=== PATIENT | female | born 1960 | race African-American/Black ===

== ENCOUNTER 2016-08-02 22:41 | Emergency (ER) | payer MEDICAID, OTHER ==
[~2016-08-02 22:41] MED LIST: AMLO5TAB2 PO; FLUO40CA PO; FURO40TA PO; GABA300C5 PO; LANTUS2P SQ; LISI10TA3 PO; MELO-1 PO; METO25TA6 PO; NORC5TAB PO; PROT40TA PO; ULTR50TA5 PO; VITA100064 PO; ZOFR4TAB3 SL
[2016-08-02 22:43] VITALS: BP 191/93; PULSE 80; RESP 16; TEMP 98.3; O2SAT 98
[2016-08-02 23:33] LABS: AUTOMATED NEUTROPHIL # 2.6 TH/MM3 (1.8-7.7); BASOPHIL # 0.1 TH/MM3 (0-0.2); BASOPHIL % 1.3 % (0.0-2.0); EOSINOPHIL # 0.3 TH/MM3 (0-0.4); EOSINOPHIL % 5.1 % (0.0-4.0); HEMATOCRIT 37.4 % (35.0-46.0); HEMO FLAGS DIFF FINAL; LYMPH % 42.1 % (9.0-44.0); LYMPHOCYTE # 2.4 TH/MM3 (1.0-4.8); MEAN CELL VOLUME 86.7 FL (80.0-100.0); MEAN CORPUSCULAR HEMOGLOBIN 28.6 PG (27.0-34.0); MONO % 7.1 % (0.0-8.0); NEUT % 44.4 % (16.0-70.0); PLATELET COUNT 253 TH/MM3 (150-450); RED BLOOD COUNT 4.32 MIL/MM3 (4.00-5.30); RED CELL DISTRIBUTION WIDTH 13.5 % (11.6-17.2); WHITE BLOOD COUNT 5.7 TH/MM3 (4.0-11.0)
[2016-08-02 23:40] LABS: PROTHROMBIN TIME - PATIENT 10.6 SEC (9.8-11.6)
[2016-08-02 23:56] LABS: ALKALINE PHOSPHATASE 100 U/L (45-117); TOTAL BILIRUBIN ADULT 0.3 MG/DL (0.2-1.0)
[2016-08-03 00:06] LABS: ALT (GPT) 41 U/L (10-53); ANION GAP 6 MEQ/L (5-15); AST (GOT) 30 U/L (15-37); BICARBONATE 32.2 MEQ/L (21.0-32.0); BLOOD UREA NITROGEN 17 MG/DL (7-18); CHLORIDE 104 MEQ/L (98-107); GLOMERULAR FILTRATION RATE 64 ML/MIN (>89); SODIUM (NA) 142 MEQ/L (136-145)
[2016-08-03 00:14] LABS: POTASSIUM 4.2 MEQ/L (3.5-5.1)
[2016-08-03 02:48] VITALS: BP 144/79; PULSE 97; RESP 18; O2SAT 94
--- NOTE | 2016-08-03 03:33 | PD ---
HPI Chief Complaint: Edema Time Seen by Provider: 02:34 Travel History International Travel<30 days: No Contact w/Intl Traveler<30days: No Traveled to known affect area: No History of Present Illness HPI 56-year-old female presents with bilateral lower extremity edema and concern that she has gained weight. She states she used to be on dialysis and is not on that anymore. She denies any chest pain, shortness of breath, fever or other concurrent complaints. She states that she is worried about her kidneys. Quality is swollen. Severity is moderate. Location is bilateral lower legs. She denies specific modifying factors. Duration is couple weeks. PFSH Past Medical History Heart Rhythm Problems: No Cardiac Catheterization: Yes (3) Cardiovascular Problems: Yes (CHF) High Cholesterol: No Congestive Heart Failure: Yes Cerebrovascular Accident: Yes (TIA) Diabetes: Yes (INSULIN DEPENDENT) Patient Takes Glucophage: No Diminished Hearing: No Gastrointestinal Disorders: Yes (COLONOSCOPY 3 POLYPS REMOVED) Hypertension: Yes Immunizations Current: No Pancreatitis: Yes Tetanus Vaccination: < 5 Years Influenza Vaccination: Yes ?: Not Menopausal: Yes : 3 Para: 2 : 1 Past Surgical History Cholecystectomy: Yes Coronary Artery Bypass Graft: No Eye Surgery: Yes (R EYE RETINA DETACHMENT in 2007) Hysterectomy: Yes Family History Family Myocardial Infarction: Yes Social History Alcohol Use: No Tobacco Use: No Substance Use: No Allergies-Medications (Allergen,Severity, Reaction): Coded Allergies: No Known Allergies (Verified , 08/03/16) Reported Meds & Prescriptions Reported Meds & Active Scripts Active Reported Vitamin D (Cholecalciferol) 1,000 Unit Tab 1,000 Units PO DAILY Furosemide 40 Mg Tab 40 Mg PO DAILY Lisinopril 10 Mg Tab 10 Mg PO DAILY Metoprolol Succinate ER 24 HR (Metoprolol Succinate) 25 Mg Tab 25 Mg PO DAILY Fluoxetine (Fluoxetine HCl) 40 Mg Cap 40 Cap PO DAILY Amlodipine (Amlodipine Besylate) 5 Mg Tab 5 Mg PO DAILY Protonix (Pantoprazole Sodium) 40 Mg Tab 40 Mg PO DAILY Gabapentin 300 Mg Cap 300 Mg PO HS Meloxicam 15 Mg Tab 15 Mg PO DAILY Lantus Inj (Insulin Glargine) 1,000 Unit/10 Ml Vial 55 Units SQ HS Lantus Inj (Insulin Glargine) 1,000 Unit/10 Ml Vial 75 Units SQ AC BREAKFAST Review of Systems Except as stated in HPI: all other systems reviewed are Neg Physical Exam Narrative GENERAL: Well-nourished, well-developed patient. Well-appearing SKIN: Warm and dry. HEAD: Normocephalic and atraumatic. EYES: No injection or drainage. ENT: No nasal drainage noted. NECK: Supple, trachea midline. CARDIOVASCULAR: Regular rate and rhythm RESPIRATORY: Breath sounds equal bilaterally. No accessory muscle use. GASTROINTESTINAL: Abdomen soft, non-tender, nondistended. EXTREMITIES: Nonpitting edema bilateral lower extremities, no joint pains, compartments soft. NEUROLOGICAL: Awake and alert. Motor and sensory grossly within normal limits. Normal speech. Data Data Last Documented VS Vital Signs Date Time Temp Pulse Resp B/P Pulse Ox O2 Delivery O2 Flow Rate FiO2 08/03/16 02:48 97 18 144/79 94 Room Air 08/02/16 22:43 98.3 Orders B-Type Natriuretic Peptide (08/02/16 22:57) Comprehensive Metabolic Panel (08/02/16 22:57) Complete Blood Count With Diff (08/02/16 22:57) Coag Profile (08/02/16 22:57) Labs Laboratory Tests Test 08/02/16 23:15 White Blood Count 5.7 TH/MM3 Red Blood Count 4.32 MIL/MM3 Hemoglobin 12.3 GM/DL Hematocrit 37.4 % Mean Corpuscular Volume 86.7 FL Mean Corpuscular Hemoglobin 28.6 PG Mean Corpuscular Hemoglobin 33.0 % Concent Red Cell Distribution Width 13.5 % Platelet Count 253 TH/MM3 Mean Platelet Volume 8.7 FL Neutrophils (%) (Auto) 44.4 % Lymphocytes (%) (Auto) 42.1 % Monocytes (%) (Auto) 7.1 % Eosinophils (%) (Auto) 5.1 % Basophils (%) (Auto) 1.3 % Neutrophils # (Auto) 2.6 TH/MM3 Lymphocytes # (Auto) 2.4 TH/MM3 Monocytes # (Auto) 0.4 TH/MM3 Eosinophils # (Auto) 0.3 TH/MM3 Basophils # (Auto) 0.1 TH/MM3 CBC Comment DIFF FINAL Differential Comment Prothrombin Time 10.6 SEC Prothromb Time International 1.0 RATIO Ratio Activated Partial 25.0 SEC Thromboplast Time Sodium Level 142 MEQ/L Potassium Level 4.2 MEQ/L Chloride Level 104 MEQ/L Carbon Dioxide Level 32.2 MEQ/L Anion Gap 6 MEQ/L Blood Urea Nitrogen 17 MG/DL Creatinine 1.07 MG/DL Estimat Glomerular Filtration 64 ML/MIN Rate Random Glucose 218 MG/DL Calcium Level 8.9 MG/DL Total Bilirubin 0.3 MG/DL Aspartate Amino Transf 30 U/L (AST/SGOT) Alanine Aminotransferase 41 U/L (ALT/SGPT) Alkaline Phosphatase 100 U/L B-Type Natriuretic Peptide 7 PG/ML Total Protein 7.8 GM/DL Albumin 3.5 GM/DL MDM Medical Decision Making Medical Screen Exam Complete: Yes Emergency Medical Condition: Yes Medical Record Reviewed: Yes (past history confirmed) Interpretation(s) CBC & BMP Diagram 08/02/16 23:15 Differential Diagnosis Acute renal failure, anemia, heart failure Narrative Course Blood work from triage is normal including BNP other than moderately elevated glucose in the 200s with normal bicarbonate and minimally elevated creatinine which has improved from prior. Lengthy discussion with patient and she agrees to further testing as an outpatient. Given return instructions. Diagnosis Primary Impression: Bilateral lower extremity edema Patient Instructions: General Instructions Additional Instructions: Elevate legs at rest, return as needed, follow with primary Thursday Med/Other Pt SpecificInfo: No Change to Meds Disposition: 01 DISCHARGE HOME Condition: Stable Kerry Mccormack MD Aug 03, 2016 03:33
--- NOTE | 2016-08-03 14:39 | EKG ---
Date Performed: 08/03/2016 Time Performed: 02:24:08 PTAGE: 56 years EKG: Sinus rhythm WITH OCCASIONAL SUPRAVENTRICULAR PREMATURE COMPLEXES LOW QRS VOLTAGE IN PRECORDIAL LEADS POSSIBLE AN TERIOR MYOCARDIAL INFARCTION BORDERLINE ECG Compared to prior tracing no significant change PREVIOUS TRACING : 04/18/2016 01.17 DOCTOR: Grady Rios Interpretating Date/Time 08/03/2016 14:37:42
== END 2016-08-03 04:06 | disposition home or self-care (01) ==
LOC: NEPE 22:41
DX: R60.0 Localized edema (principal); I10 Essential (primary) hypertension; E11.9 Type 2 diabetes mellitus without complications; Z86.73 Personal history of transient ischemic attack (TIA), and cerebral infarction without residual deficits; I50.9 Heart failure, unspecified; Z79.4 Long term (current) use of insulin
CPT/HCPCS: 80053; 83880; 85025; 85610; 85730; 93005; 99284

== ENCOUNTER 2017-01-24 01:09 | Observation (INO) | payer OTHER, MEDICAID ==
[~2017-01-24] VITALS: Ht 170.2 cm; Wt 120.0 kg
[2017-01-24] VITALS (12 sets, daily range): BP systolic 105–159; BP diastolic 57–87; PULSE 73–82; RESP 16–24; TEMP 96.8–98.8; O2SAT 94–100
[~2017-01-24 01:09] MED LIST changes: -NORC5TAB PO; -ULTR50TA5 PO; -ZOFR4TAB3 SL
[2017-01-24] MEDS ORDERED: FUROSEMIDE 40 MG/4 ML VIAL IVP ONE (01:45)
[2017-01-24] MEDS ORDERED: SODIUM CHLORIDE 0.9% FLUSH 10 ML FLUSH IVF PRN (01:45)
[2017-01-24] MEDS ORDERED: NITROGLYCERIN 2% OINT 1 GM PACKET TOPICAL ONE (01:45)
[2017-01-24] MEDS ORDERED: ASPIRIN 325 MG TAB PO ONE (01:45)
--- NOTE | 2017-01-24 01:54 | RADRPT ---
EXAM DATE/TIME: 01/24/2017 01:50 [facility] COMPARISON: CHEST SINGLE AP, April 08, 2016, 23:15. INDICATIONS : Chest pain. MEDICAL HISTORY : Hypertension. Diabetes mellitus type II. SURGICAL HISTORY : None. ENCOUNTER: Initial ACUITY: 1 day PAIN SCORE: 7/10 LOCATION: Bilateral chest FINDINGS: A single view of the chest demonstrates the lungs to be symmetrically aerated without evidence of mas s, infiltrate or effusion. The cardiomediastinal contours are unremarkable. Osseous structures are intact. CONCLUSION: Normal examination. Harvey Joyce MD on January 24, 2017 at 1:52 Board Certified Radiologist. This report was verified electronically.
[2017-01-24 02:01] LABS: AUTOMATED NEUTROPHIL # 2.1 TH/MM3 (1.8-7.7); BASOPHIL % 0.6 % (0.0-2.0); EOSINOPHIL # 0.3 TH/MM3 (0-0.4); EOSINOPHIL % 6.3 % (0.0-4.0); HEMATOCRIT 38.2 % (35.0-46.0); HEMO FLAGS DIFF FINAL; LYMPH % 41.3 % (9.0-44.0); LYMPHOCYTE # 2.2 TH/MM3 (1.0-4.8); MEAN CELL VOLUME 88.5 FL (80.0-100.0); MEAN CORPUSCULAR HEMOGLOBIN 28.9 PG (27.0-34.0); MEAN CORPUSCULAR HGB CONC 32.6 % (32.0-36.0); MONO % 12.6 % (0.0-8.0); NEUT % 39.2 % (16.0-70.0); PLATELET COUNT 276 TH/MM3 (150-450); RED BLOOD COUNT 4.32 MIL/MM3 (4.00-5.30); RED CELL DISTRIBUTION WIDTH 13.7 % (11.6-17.2); WHITE BLOOD COUNT 5.3 TH/MM3 (4.0-11.0)
[2017-01-24 02:12] LABS: INTERNATIONAL NORMALIZED RATIO 0.9 RATIO; PROTHROMBIN TIME - PATIENT 10.3 SEC (9.8-11.6)
[2017-01-24 02:24] LABS: ALT (GPT) 61 U/L (10-53); ANION GAP 7 MEQ/L (5-15); AST (GOT) 52 U/L (15-37); BICARBONATE 28.5 MEQ/L (21.0-32.0); BLOOD UREA NITROGEN 23 MG/DL (7-18); CHLORIDE 103 MEQ/L (98-107); GLOMERULAR FILTRATION RATE 48 ML/MIN (>89); POTASSIUM 4.1 MEQ/L (3.5-5.1); SODIUM (NA) 138 MEQ/L (136-145)
[2017-01-24 02:30] LABS: ALKALINE PHOSPHATASE 107 U/L (45-117); CREATINE KINASE 171 U/L (26-192); TOTAL BILIRUBIN ADULT 0.3 MG/DL (0.2-1.0)
[2017-01-24 02:42] LABS: CKMB 3.2 NG/ML (0.5-3.6)
--- NOTE | 2017-01-24 02:42 | PD ---
HPI Chief Complaint: Chest Pain Time Seen by Provider: 01:33 Travel History International Travel<30 days: No Contact w/Intl Traveler<30days: No Traveled to known affect area: No History of Present Illness HPI 56-year-old female patient with history of multiple medical issues, CHF, presents to the ER today with one-day history of substernal chest pains which she currently measures at a 5 out of 10 and shortness of breath. She states her chest feels heavy. She denies any fevers, coughing, or other symptoms. She is on Lasix and last took it this morning. Symptoms worsen with laying down. Modifying Factors: None Associated Signs & Symptoms: Chest pressure and shortness of breath Risk Factors: CHF history PFSH Past Medical History Hx Anticoagulant Therapy: No Heart Rhythm Problems: No Cardiac Catheterization: Yes (3) Cardiovascular Problems: Yes ([place], HTN, CAD, CHF) High Cholesterol: No Congestive Heart Failure: Yes Cerebrovascular Accident: Yes (TIA) Diabetes: Yes Patient Takes Glucophage: No Diminished Hearing: No Gastrointestinal Disorders: Yes (COLONOSCOPY 3 POLYPS REMOVED) Hypertension: Yes Immunizations Current: No Pancreatitis: Yes Menopausal: Yes : 3 Para: 2 : 1 Past Surgical History Cholecystectomy: Yes Coronary Artery Bypass Graft: No Eye Surgery: Yes (R EYE RETINA DETACHMENT in 2007) Hysterectomy: Yes Family History Family Myocardial Infarction: Yes Social History Alcohol Use: No Tobacco Use: No Substance Use: No Allergies-Medications (Allergen,Severity, Reaction): Coded Allergies: No Known Allergies (Verified , 01/24/17) Reported Meds & Prescriptions Reported Meds & Active Scripts Active Reported Vitamin D3 (Cholecalciferol) 1,000 Unit Tab 1,000 Units PO DAILY Furosemide 40 Mg Tab 40 Mg PO DAILY Lisinopril 10 Mg Tab 10 Mg PO DAILY Metoprolol Succinate ER 24 HR (Metoprolol Succinate) 25 Mg Tab 25 Mg PO DAILY Fluoxetine (Fluoxetine HCl) 40 Mg Cap 40 Cap PO DAILY Amlodipine (Amlodipine Besylate) 5 Mg Tab 5 Mg PO DAILY Protonix (Pantoprazole Sodium) 40 Mg Tab 40 Mg PO DAILY Gabapentin 300 Mg Cap 300 Mg PO HS Meloxicam 15 Mg Tab 15 Mg PO DAILY Lantus Inj (Insulin Glargine) 1,000 Unit/10 Ml Vial 55 Units SQ HS Lantus Inj (Insulin Glargine) 1,000 Unit/10 Ml Vial 75 Units SQ AC BREAKFAST Review of Systems Except as stated in HPI: all other systems reviewed are Neg Physical Exam Narrative GENERAL: Well-developed middle age -[place] female patient in mild distress. Awake and oriented 3. SKIN: Focused skin assessment warm/dry. HEAD: Atraumatic. Normocephalic. EYES: Pupils equal and round. No scleral icterus. No injection or drainage. ENT: No nasal bleeding or discharge. Mucous membranes pink and moist. NECK: Trachea midline. No JVD. CARDIOVASCULAR: Regular rate and rhythm. No murmur appreciated. Pulses are present and equal bilaterally. RESPIRATORY: No accessory muscle use. Clear to auscultation. Breath sounds equal bilaterally. GASTROINTESTINAL: Abdomen soft, non-tender, nondistended. Hepatic and splenic margins not palpable. MUSCULOSKELETAL: No obvious deformities. No clubbing. No cyanosis. No edema. NEUROLOGICAL: Awake and alert. No obvious cranial nerve deficits. Motor grossly within normal limits. Normal speech. PSYCHIATRIC: Appropriate mood and affect; insight and judgment normal. Data Data Last Documented VS Vital Signs Date Time Temp Pulse Resp B/P (MAP) Pulse Ox O2 Delivery O2 Flow Rate FiO2 01/24/17 02:50 80 20 152/80 (104) 99 Room Air 01/24/17 01:23 98.8 Orders Orders Complete Blood Count With Diff (01/24/17 01:33) Comprehensive Metabolic Panel (01/24/17 01:33) B-Type Natriuretic Peptide (01/24/17 01:33) Act Partial Throm Time (Ptt) (01/24/17 01:33) Prothrombin Time / Inr (Pt) (01/24/17 01:33) Ckmb (Isoenzyme) Profile (01/24/17 01:33) Troponin I (01/24/17 01:33) Iv Access Insert/Monitor (01/24/17:33) Ecg Monitoring (01/24/17:33) Oximetry (01/24/17:33) Oxygen Administration (01/24/17 01:33) Chest, Single Ap (01/24/17 01:33) Sodium Chloride 0.9% Flush (Ns Flush) (01/24/17 01:45) Furosemide Inj (Lasix Inj) (01/24/17 01:45) Aspirin (Aspirin) (01/24/17 01:45) Nitroglycerin 2% Oint (Nitroglycerin 2% (01/24/17 01:45) CKMB (01/24/17 01:40) CKMB% (01/24/17 01:40) Admit Order (Ed Use Only) (01/24/17 03:17) Activity Bed Rest With Brp (01/24/17 03:17) Vital Signs (Adult) Q4H (01/24/17 03:17) Cardiac Rhythm .As Directed (01/24/17 03:17) Notify Dr: Other .PRN (01/24/17 03:17) Notify DrAnna Parameters (01/24/17 03:17) Resp Oxygen Nasal Cannula (01/24/17 ) Diet Heart Healthy (01/24/17 Breakfast) Ckmb (Isoenzyme) Profile (01/24/17 03:17) Ckmb (Isoenzyme) Profile (01/24/17 06:17) Troponin I (01/24/17 03:17) Troponin I (01/24/17 06:17) Electrocardiogram (01/24/17 03:17) Electrocardiogram (01/24/17 06:17) ^ Obtain (01/24/17 03:17) Sodium Chloride 0.9% Flush (Ns Flush) (01/24/17 03:30) Sodium Chloride 0.9% Flush (Ns Flush) (01/24/17 09:00) Building Mover / Telemetry CAMRYN.Q8H (01/24/17 03:17) CKMB (01/24/17 04:43) CKMB% (01/24/17 04:43) Labs Laboratory Tests Test 01/24/17 01:40 White Blood Count 5.3 TH/MM3 Red Blood Count 4.32 MIL/MM3 Hemoglobin 12.5 GM/DL Hematocrit 38.2 % Mean Corpuscular Volume 88.5 FL Mean Corpuscular Hemoglobin 28.9 PG Mean Corpuscular Hemoglobin Concent 32.6 % Red Cell Distribution Width 13.7 % Platelet Count 276 TH/MM3 Mean Platelet Volume 8.1 FL Neutrophils (%) (Auto) 39.2 % Lymphocytes (%) (Auto) 41.3 % Monocytes (%) (Auto) 12.6 % Eosinophils (%) (Auto) 6.3 % Basophils (%) (Auto) 0.6 % Neutrophils # (Auto) 2.1 TH/MM3 Lymphocytes # (Auto) 2.2 TH/MM3 Monocytes # (Auto) 0.7 TH/MM3 Eosinophils # (Auto) 0.3 TH/MM3 Basophils # (Auto) 0.0 TH/MM3 CBC Comment DIFF FINAL Differential Comment Prothrombin Time 10.3 SEC Prothromb Time International Ratio 0.9 RATIO Activated Partial Thromboplast Time 24.0 SEC Blood Urea Nitrogen 23 MG/DL Creatinine 1.36 MG/DL Random Glucose 185 MG/DL Total Protein 7.7 GM/DL Albumin 3.3 GM/DL Calcium Level 8.6 MG/DL Alkaline Phosphatase 107 U/L Aspartate Amino Transf (AST/SGOT) 52 U/L Alanine Aminotransferase (ALT/SGPT) 61 U/L Total Bilirubin 0.3 MG/DL Sodium Level 138 MEQ/L Potassium Level 4.1 MEQ/L Chloride Level 103 MEQ/L Carbon Dioxide Level 28.5 MEQ/L Anion Gap 7 MEQ/L Estimat Glomerular Filtration Rate 48 ML/MIN Total Creatine Kinase 171 U/L Creatine Kinase MB 3.2 NG/ML Troponin I LESS THAN 0.02 NG/ML B-Type Natriuretic Peptide 10 PG/ML MDM Medical Decision Making Medical Screen Exam Complete: Yes Emergency Medical Condition: Yes Medical Record Reviewed: Yes Interpretation(s) EKG shows NSR, no ST elevation or depression, and no arrhythmias. No significant T-wave inversions. Laboratory Tests Test 01/24/17 01:40 Monocytes (%) (Auto) 12.6 % (0.0-8.0) Eosinophils (%) (Auto) 6.3 % (0.0-4.0) Activated Partial Thromboplast Time 24.0 SEC (24.3-30.1) Blood Urea Nitrogen 23 MG/DL (7-18) Creatinine 1.36 MG/DL (0.50-1.00) Random Glucose 185 MG/DL (74-106) Albumin 3.3 GM/DL (3.4-5.0) Aspartate Amino Transf (AST/SGOT) 52 U/L (15-37) Alanine Aminotransferase (ALT/SGPT) 61 U/L (10-53) Estimat Glomerular Filtration Rate 48 ML/MIN (>89) Troponin I LESS THAN 0.02 NG/ML Last 24 hours Impressions Chest X-Ray 01/24/17 3293 Signed Impressions: Service Date/Time: Tuesday, January 24, 2017 01:50 - CONCLUSION: Normal examination. Harvey Joyce MD Differential Diagnosis CHF versus pneumonia versus dysrhythmias versus ACS Narrative Course Chest x-ray did not indicate any underlying pneumonia. Cardiac enzymes are negative. Patient was given aspirin and nitroglycerin with some relief of chest discomfort. Vital signs are stable in the ER. CTA was negative for PE. At this point, my plan would be to admit her for further evaluation of chest pain. Diagnosis Primary Impression: Chest pain Admitting Information Admitting Physician Requests: Admit Christine Cho MD Jan 24, 2017 02:42
[2017-01-24] MEDS ORDERED: IOHEXOL 350 MG/ML 10 ML VIAL (for RAD DIAG) IVCONTRAST ONE (03:21)
[2017-01-24] MEDS ORDERED: SODIUM CHLORIDE 0.9% FLUSH 10 ML FLUSH IV FLUSH PRN (03:30)
--- NOTE | 2017-01-24 04:43 | RADRPT ---
EXAM DATE/TIME: 01/24/2017 04:16 [facility] COMPARISON: No previous studies available for comparison. INDICATIONS : Chest pain with shortness of breath. IV CONTRAST: 70 cc Omnipaque 350 (iohexol) IV RADIATION DOSE: 23.23 CTDIvol (mGy) MEDICAL HISTORY : Cardiovascular disease. Hypertension. Diabetes mellitus type 2. SURGICAL HISTORY : None. ENCOUNTER: Initial ACUITY: 1 day PAIN SCALE: 8/10 LOCATION: Bilateral chest TECHNIQUE: Volumetric scanning of the chest was performed using a pulmonary embolism protocol MIP images were re constructed. Using automated exposure control and adjustment of the mA and/or kV according to patien t size, radiation dose was kept as low as reasonably achievable to obtain optimal diagnostic quality images. DICOM format image data is available electronically for review and comparison. Follow-up recommendations for detected pulmonary nodules are based at a minimum on nodule size and pa tient risk factors according to Fleischner Society Guidelines. FINDINGS: PULMONARY ARTERIES: No filling defects are seen in the pulmonary arteries through the segmental level. LUNGS: There is no consolidation or pneumothorax . No concerning pulmonary nodule is visualized. PLEURAE: There is no pleural thickening or pleural effusion. MEDIASTINUM: There is good visualization of the great vessels of the middle mediastinum. No evidence of mediastin al or hilar adenopathy/mass. MUSCULOSKELETAL: Within normal limits for patient age. MISCELLANEOUS: The visualized upper abdominal organs demonstrate no acute abnormality. CONCLUSION: Normal examination. Harvey Joyce MD on January 24, 2017 at 4:41 Board Certified Radiologist. This report was verified electronically.
[2017-01-24 05:52] LABS: CREATINE KINASE 156 U/L (26-192)
[2017-01-24] MEDS ORDERED: ONDANSETRON HCL 4 MG/2 ML VIAL IV PRN (08:15)
[2017-01-24] MEDS ORDERED: ACETAMINOPHEN 500 MG CPLT PO PRN (08:15)
[2017-01-24] MEDS ORDERED: NITROGLYCERIN 0.4 MG SL 25 TABS/BTL SL PRN (08:15)
--- NOTE | 2017-01-24 08:42 | HHI.HP ---
HPI Primary Care Physician Chikis Gaines M.D. Chief Complaint Chest pain History of Present Illness 56-year-old female with history of CHF, hypertension, diabetes type 2, and renal insufficiency presents to emergency room for further evaluation. Onset last evening. Location substernal. Characterized as tightness. Nonexertional. Associated symptoms included nausea and shortness of breath. Duration one hour. Also reports feeling fatigued for weeks. Denies similar pain in the past. No known precipitating or relieving factors. Review of Systems General: Fatigue for many weeks. Weakness in legs, occurs suddenly, reports falling last week due to this. No fever, chills, or recent illness. Currently taking antibiotics for recent tooth extraction. HEENT: No KOEHLER, no vision changes, no nasal congestion or drainage. CV: As stated above. No current CP or pressure. No palpitations or dizziness RESP: Becomes SOB on exertional for "many months." No SOB at rest, cough, wheeze , recent URI, or history of asthma GI: No nausea, vomiting, bowel changes, diarrhea, constipation, pain, distention , melena, or blood in the stool. Weight fluctuates, reports taking daily weights as instructed by PCP. No sudden increase in weight. : No dysuria. History of stage III kidney failure. 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 No incontinence. EXT: Occasional anasarca, last episode last week, Lasix generally resolves her edema. Rare feelings of bilateral lower extremity neuropathy. MS: No discomfort or change in ROM NEURO: No difficulty with balance, reports "my legs give out without notice." No syncope episodes or LOC. Last episode occurred last week. Reports falling more often lately and has reported this to her PCP. PSYCH: No anxiety, depression, or suicidal ideation Past Family Social History Allergies: Coded Allergies: No Known Allergies (Verified , 01/24/17) Past Medical History CHF, hypertension, TIA, diabetes type 2, GERD, renal insufficiency Past Surgical History Cholecystectomy, right retinal detachment surgery Reported Medications Active Reported Vitamin D3 (Cholecalciferol) 1,000 Unit Tab 1,000 Units PO DAILY Furosemide 40 Mg Tab 40 Mg PO DAILY Lisinopril 10 Mg Tab 10 Mg PO DAILY Metoprolol Succinate ER 24 HR (Metoprolol Succinate) 25 Mg Tab 25 Mg PO DAILY Fluoxetine (Fluoxetine HCl) 40 Mg Cap 40 Cap PO DAILY Amlodipine (Amlodipine Besylate) 5 Mg Tab 5 Mg PO DAILY Protonix (Pantoprazole Sodium) 40 Mg Tab 40 Mg PO DAILY Gabapentin 300 Mg Cap 300 Mg PO HS Meloxicam 15 Mg Tab 15 Mg PO DAILY Lantus Inj (Insulin Glargine) 1,000 Unit/10 Ml Vial 55 Units SQ HS Lantus Inj (Insulin Glargine) 1,000 Unit/10 Ml Vial 75 Units SQ AC BREAKFAST Active Ordered Medications Current Medications Medications (Trade) Dose Ordered Sig/Crys Route Start Time Stop Time Status Last Admin (NS Flush) 2 ml UNSCH PRN IVF 01/24/17 01:45 (NS Flush) 2 ml UNSCH PRN IV FLUSH 01/24/17 03:30 (NS Flush) 2 ml BID IV FLUSH 01/24/17 09:00 (Tylenol) 500 mg Q4H PRN PO 01/24/17 08:15 (Zofran Inj) 4 mg Q6H PRN IV 01/24/17 08:15 (Nitrostat Sl) 0.4 mg Q5M PRN SL 01/24/17 08:15 (Aspirin) 325 mg DAILY PO 01/24/17 09:00 Family History Sister from [place] age 58. Social History Known diabetes type 2 and hypertension. No known hyperlipidemia, also not taken statin therapy with diabetes diagnosis. Lifelong nonsmoker. Denies any alcohol or illegal drug use. Past cardiac testing Reports stress test, EKG, and echocardiogram completed last week in [place], has appointment scheduled for 01/28/2017 for results. 10/28/2015 Lexiscan-unremarkable for ischemia. Cardiac catheterizations 3-reported all to be normal. Most recent 2010 cardiac catheterization. 12/30/2010- left heart catheterization (Dr. Mane)- conclusion left main, no angiographic disease. Left anterior descending is large and long vessel, wraps around the apex, with no angiographic obstructive disease. Large ramus intermedius branch, ostial 20% stenosis. Co-dominant circumflex and no angiographic disease. Co-dominant RCA, proximal 30% stenosis. Recommendations continue medical management. In review of unremarkable coronary angiogram, the stress test can be interpreted as a false positive or attenuation artifact. Physical Exam Vital Signs Vital Signs Date Time Temp Pulse Resp B/P (MAP) Pulse Ox O2 Delivery O2 Flow Rate FiO2 01/24/17 05:54 76 01/24/17 05:30 98.3 81 18 105/58 (74) 98 01/24/17 03:56 78 20 154/82 (106) 97 Room Air 01/24/17 03:29 94 01/24/17 02:50 80 20 152/80 (104) 99 Room Air 01/24/17 01:26 73 24 94 Room Air 01/24/17 01:23 98.8 76 16 148/72 (97) 100 01/24/17 01:11 98.7 82 24 159/87 (111) 98 Room Air Physical Exam GENERAL: Alert WN, WD, NAD, pleasant, obese female CV: RRR, without murmur, rub, gallop, no JVD, S1-S2 no S3-S4. RESP: Clear lungs throughout bilateral, no crackles, wheeze, rhonchi, symmetrical chest rise, nonlabored, able to speak in full sentences ABD: Soft, NT, ND, no masses, positive bowel tones EXT: Pulses +24, trace dependent edema MS: Normal tone 4 extremities, nontender, no obvious deformities, full range of motion NEURO: CN II through CN XII grossly intact, motor strength 5/5 PSYCH: A+O 3, pleasant affect, appropriate speech, appropriate mood and affect , insight and judgment SKIN: Normal turgor, normal texture Laboratory Laboratory Tests Test 01/24/17 01:40 01/24/17 04:43 01/24/17 07:45 White Blood Count 5.3 Red Blood Count 4.32 Hemoglobin 12.5 Hematocrit 38.2 Mean Corpuscular Volume 88.5 Mean Corpuscular Hemoglobin 28.9 Mean Corpuscular Hemoglobin Concent 32.6 Red Cell Distribution Width 13.7 Platelet Count 276 Mean Platelet Volume 8.1 Neutrophils (%) (Auto) 39.2 Lymphocytes (%) (Auto) 41.3 Monocytes (%) (Auto) 12.6 Eosinophils (%) (Auto) 6.3 Basophils (%) (Auto) 0.6 Neutrophils # (Auto) 2.1 Lymphocytes # (Auto) 2.2 Monocytes # (Auto) 0.7 Eosinophils # (Auto) 0.3 Basophils # (Auto) 0.0 CBC Comment DIFF FINAL Differential Comment Prothrombin Time 10.3 Prothromb Time International Ratio 0.9 Activated Partial Thromboplast Time 24.0 Blood Urea Nitrogen 23 Creatinine 1.36 Random Glucose 185 Total Protein 7.7 Albumin 3.3 Calcium Level 8.6 Alkaline Phosphatase 107 Aspartate Amino Transf (AST/SGOT) 52 Alanine Aminotransferase (ALT/SGPT) 61 Total Bilirubin 0.3 Sodium Level 138 Potassium Level 4.1 Chloride Level 103 Carbon Dioxide Level 28.5 Anion Gap 7 Estimat Glomerular Filtration Rate 48 Total Creatine Kinase 171 156 Creatine Kinase MB 3.2 3.0 Troponin I LESS THAN 0.02 LESS THAN 0.02 B-Type Natriuretic Peptide 10 Result Diagram: 01/24/1713901/24/[address] Angiography 01/24/17342 Signed Impressions: Service Date/Time: Tuesday, January 24, 2017 04:16 - CONCLUSION: Normal examination. Harvey Joyce MD Chest X-Ray 01/24/17 0133 Signed Impressions: Service Date/Time: Tuesday, January 24, 2017 01:50 - CONCLUSION: Normal examination. Harvey Joyce MD Course EKG Normal sinus rhythm, left axis deviation, nonspecific T-wave changes Caprini VTE Risk Assessment Caprini VTE Risk Assessment: No/Low Risk (score <= 1) Caprini Risk Assessment Model Point Value = 1 Point Value = 2 Point Value = 3 Point Value = 5 Age 41-60 Minor surgery BMI > 25 kg/m2 Swollen legs Varicose veins or History of unexplained or recurrent spontaneous Oral contraceptives or hormone replacement Sepsis (< 1 month) Serious lung disease, including pneumonia (< 1 month) Abnormal pulmonary function Acute myocardial infarction Congestive heart failure (< 1 month) History of inflammatory bowel disease Medical patient at bed rest Age 61-74 Arthroscopic surgery Major open surgery (> 45 min) Laparoscopic surgery (> 45 min) Malignancy Confined to bed (> 72 hours) Immobilizing plaster cast Central venous access Age >= 75 History of VTE Family history of VTE Factor V Leiden Prothrombin [id number] Lupus anticoagulant Anticardiolipin antibodies Elevated serum homocysteine Heparin-induced thrombocytopenia Other congenital or acquired thrombophilia Stroke (< 1 month) Elective arthroplasty Hip, pelvis, or leg fracture Acute spinal cord injury (< 1 month) Prophylaxis Regimen Total Risk Factor Score Risk Level Prophylaxis Regimen 0-1 Low Early ambulation 2 Moderate Order ONE of the following: *Sequential Compression Device (SCD) *Heparin 5000 units SQ BID 3-4 Higher Order ONE of the following medications: *Heparin 5000 units SQ TID *Enoxaparin/Lovenox 40 mg SQ daily (WT < 150 kg, CrCl > 30 mL/min) *Enoxaparin/Lovenox 30 mg SQ daily (WT < 150 kg, CrCl > 10-29 mL/min) *Enoxaparin/Lovenox 30 mg SQ BID (WT < 150 kg, CrCl > 30 mL/min) AND/OR *Sequential Compression Device (SCD) 5 or more Highest Order ONE of the following medications: *Heparin 5000 units SQ TID (Preferred with Epidurals) *Enoxaparin/Lovenox 40 mg SQ daily (WT < 150 kg, CrCl > 30 mL/min) *Enoxaparin/Lovenox 30 mg SQ daily (WT < 150 kg, CrCl > 10-29 mL/min) *Enoxaparin/Lovenox 30 mg SQ BID (WT < 150 kg, CrCl > 30 mL/min) AND *Sequential Compression Device (SCD) Assessment and Plan Assessment and Plan #1 Chest pain-admitted to chest pain center. Ruled out with 3 sets of EKGs, cardiac enzymes, monitor overnight. Seen and evaluated by Dr. Karel Daniels. Proceed with chemical stress test due to reported recent stress testing results not available for review. If stress test unremarkable, will discharge later this afternoon. Instructed to keep follow-up appointment with conveyor tender on . #2 Diabetes-SSI moderate dose, continue Lantus, encouraged increasing her daily activity as able, follow up with PCP #3 Hypertension-continue amlodipine and lisinopril, encouraged low sodium diet #4 CHF-continue metoprolol and furosemide, no signs of congestive heart failure at this time, keep follow up appointment with conveyor tender. #5 Renal insufficiency-appears to be at baseline, follow with nephrology as previously instructed #6 Generalized leg weakness-encouraged her to follow up with PCP, calling on Thursday to move her appointment to possible earlier appointment All other home medications will be reviewed and ordered as appropriate while in chest pain center. Ivy Clinton Jan 24, 2017 08:42
[2017-01-24] MEDS ORDERED: GLUCAGON 1 MG/ML VIAL OTHER PRN ×2 (09:00→11:15)
[2017-01-24] MEDS ORDERED: ASPIRIN 325 MG TAB PO SCH (09:00)
[2017-01-24] MEDS ORDERED: SODIUM CHLORIDE 0.9% FLUSH 10 ML FLUSH IV FLUSH SCH (09:00)
[2017-01-24] MEDS ORDERED: DEXTROSE 50% IN WATER 50 ML VIAL(D50) IV PRN ×2 (09:00→11:15)
[2017-01-24 09:07] LABS: CREATINE KINASE 144 U/L (26-192)
[2017-01-24 09:19] LABS: CKMB 2.6 NG/ML (0.5-3.6)
[2017-01-24] MEDS ORDERED: INSULIN ASPART SUPPLEMENTAL SCALE SQ SCH ×2 (11:00→16:00)
[2017-01-24] MEDS ORDERED: FUROSEMIDE 40 MG TAB PO SCH (12:00)
[2017-01-24] MEDS ORDERED: amLODIPine BESYLATE 5 MG TAB PO SCH (12:00)
[2017-01-24] MEDS ORDERED: FLUoxetine HCL 20 MG CAP PO SCH (12:00)
[2017-01-24] MEDS ORDERED: CHOLECALCIFEROL (VIT D3) 1000 UNIT TAB PO SCH (12:00)
[2017-01-24] MEDS ORDERED: METOPROLOL SUCCINATE 25 MG EXTENDED RELEASE TAB PO SCH (12:00)
[2017-01-24] MEDS ORDERED: LISINOPRIL 10 MG TAB PO SCH (12:00)
[2017-01-24] MEDS ORDERED: PANTOPRAZOLE SOD 40 MG DELAYED RELEASE TAB PO SCH (12:00)
[2017-01-24] MEDS ORDERED: REGADENOSON INJ 0.4 MG/5 ML SYR ONE (13:10)
--- NOTE | 2017-01-24 14:29 | RADRPT ---
EXAM DATE/TIME: 01/24/2017 12:28 [facility] COMPARISON: MYOCARDIAL PERF PHARM SPECT, GATED W/EF, October 28, 2015, 10:52. INDICATIONS : Substernal chest pain. Angina. Coronary artery disease. DOSE: 35.0 mCi Tc99m Myoview at stress. 11.0 mCi Tc99m Myoview at rest. 0.4 mg Lexiscan STRESS SYMPTOMS: Heart racing and warm. EJECTION FRACTION: 59% MEDICAL HISTORY : Myocardial infarction. Congestive heart failure. Diabetes mellitus type 2. SURGICAL HISTORY : Cardiac cath. ENCOUNTER: Initial ACUITY: 1 day PAIN SCALE: 5/10 LOCATION: Substernal chest TECHNIQUE: The patient underwent pharmacologic stress with infusion of prescribed dose. Continuous ECG tracing was monitored during stress. Gated SPECT imaging was performed after stress and conventional SPECT i maging was performed at rest. The examination was performed on a SPECT/CT scanner, both attenuation and non-corrected datasets were reviewed. FINDINGS: DISTRIBUTION: The maximum perfused segment at stress is in the anterior wall. PERFUSION STUDY: The pattern of perfusion at stress is within normal limits. GATED STUDY: There is intact wall motion and thickening without hypokinetic or dyskinetic segments. CONCLUSION: No definitive reversible perfusion defects are seen to suggest stress-induced myocardial ischemia. RISK CATEGORY: Low (less than 1% annual mortality rate) Tara Jensen MD on January 24, 2017 at 14:22 Board Certified Radiologist. This report was verified electronically.
--- NOTE | 2017-01-24 15:50 | HHI.DCPOC ---
Discharge Care Plan Diagnosis: (1) Weakness of both lower extremities (2) Atypical chest pain (3) Fatigue (4) Hypertension (5) Renal insufficiency (6) DM (diabetes mellitus) Goals to Promote Your Health * To prevent worsening of your condition and complications * To maintain your health at the optimal level Directions to Meet Your Goals Take your medications as prescribed Follow your dietary instruction Follow activity as directed Keep your appointments as scheduled Take your immunizations and boosters as scheduled If your symptoms worsen call your PCP, if no PCP go to Urgent Care Center or Emergency Room Smoking is Dangerous to Your Health. Avoid second hand smoke Call the 24-hour hour crisis hotline for domestic abuse at Ivy Clinton Jan 24, 2017 15:50
[2017-01-25] MEDS ORDERED: INSULIN GLARGINE 1,000 UNITS/10 ML VIAL SQ SCH (07:00)
--- NOTE | 2017-01-26 11:08 | EKG ---
Date Performed: 01/24/2017 Time Performed: 08:03:19 PTAGE: 56 years EKG: Sinus rhythm BORDERLINE LEFT AXIS DEVIATION LOW QRS VOLTAGE IN PRECORDIAL LEADS NONSPECIFIC T-WAVE ABNORMALITY AB NORMAL ECG PREVIOUS TRACING : 01/24/2017 05.37 Since previous tracing, no significant change noted DOCTOR: Karel Daniels Interpretating Date/Time 01/26/2017 11:07:17
--- NOTE | 2017-01-26 11:09 | EKG ---
Date Performed: 01/24/2017 Time Performed: 05:37:36 PTAGE: 56 years EKG: Sinus rhythm BORDERLINE LEFT AXIS DEVIATION NONSPECIFIC T-WAVE ABNORMALITY BORDERLINE ECG PREVIOUS TRACING : 08/03/2016 02.24 Since previous tracing, no significant change noted DOCTOR: Karel Daniels Interpretating Date/Time 01/26/2017 11:08:03
--- NOTE | 2017-01-26 11:10 | EKG ---
Date Performed: 01/24/2017 Time Performed: 01:21:46 PTAGE: 56 years EKG: Sinus rhythm BORDERLINE LEFT AXIS DEVIATION NONSPECIFIC T-WAVE ABNORMALITY BORDERLINE ECG PREVIOUS TRACING : 08/03/2016 02.24 Since previous tracing, no significant change noted DOCTOR: Karel Daniels Interpretating Date/Time 01/27/2017 06:49:15
--- NOTE | 2017-01-26 12:11 | TR ---
Date Performed: 01/24/2017 Time Performed: 13:17:57 DOCTOR: Karel Daniels DRUG LIST: CLINICAL HISTORY: REASON FOR TEST: REASON FOR ENDING: OBSERVATION: CONCLUSION: Lexiscan stress test was performed under standard four minute protocol. Radionuclid e was injected one minute prior to ending the test. No electrocardiographic abormalities were present to suggest ischemia. Nuclear imaging and interpretation are pending. COMMENTS:
== END 2017-01-24 17:14 | disposition home or self-care (01) ==
LOC: NEPE 01:09 → NEDA 03:20 → NEPFCDU 04:21
PROVIDERS: ADMIT Internal Medicine Cardiovascular Disease; ATTEND Internal Medicine Cardiovascular Disease
DX: R07.89 Other chest pain (principal); E11.9 Type 2 diabetes mellitus without complications; I11.0 Hypertensive heart disease with heart failure; I50.9 Heart failure, unspecified; N28.9 Disorder of kidney and ureter, unspecified; R53.1 Weakness; R07.2 Precordial pain; R06.02 Shortness of breath; R94.31 Abnormal electrocardiogram [ECG] [EKG]; I25.119 Atherosclerotic heart disease of native coronary artery with unspecified angina pectoris; I25.2 Old myocardial infarction; E66.9 Obesity, unspecified; Z86.73 Personal history of transient ischemic attack (TIA), and cerebral infarction without residual deficits; Z79.899 Other long term (current) drug therapy; Z79.4 Long term (current) use of insulin
CPT/HCPCS: 71010; 71275; 78452; 80053; 82550; 82552; 82948; 83880; 84484; 85025; 85610; 85730; 93005; 93017; 96374; 96376; 99285; A9502; G0378; J1940; J2785; Q9967

== ENCOUNTER → 2017-07-24 | Outpatient (CLI) | payer OTHER, MEDICAID ==
[~2017-07-24] MED LIST changes: +AMLO10TA2 PO; +COMB0.2S RIGHT EYE; +LEVO25TA4 PO; -MELO-1 PO; +MELO15TA20 PO; +METO1TAB42 PO; -METO25TA6 PO; +NAPR500T2 PO
== END ==
LOC: CPRE 09:13
PROVIDERS: ATTEND Orthopaedic Surgery Sports Medicine
DX: M17.11 Unilateral primary osteoarthritis, right knee (principal)

== ENCOUNTER 2017-08-10 06:04 | Inpatient (IN) | payer OTHER, MEDICAID, MEDICARE ==
[~2017-08-10] VITALS: Ht 170.2 cm; Wt 137.4 kg
[~2017-08-10 06:04] MED LIST changes: -AMLO5TAB2 PO
[2017-08-10] MEDS ORDERED: SODIUM CHLORID 0.9% 500 ML IV PRN (06:30)
[2017-08-10] MEDS ORDERED: POVIDONE IODINE 5% (ANTISEPSIS KIT) 4 APPLICATIONS EACH NARE PRN (06:30)
[2017-08-10] MEDS ORDERED: LACTATED RINGER'S 1000 ML IV PRN (06:30)
[2017-08-10] MEDS ORDERED: CHLORHEXIDINE GLUCONATE 2 % 1 PACK (2 CLOTHS) TOPICAL PRN (06:30)
[2017-08-10] MEDS ORDERED: METOPROLOL TARTRATE 25 MG TAB PO PRN (06:30)
[2017-08-10] MEDS ORDERED: ceFAZolin 2 GM PREMIX 50 ML IV SCH (06:45)
[2017-08-10] MEDS ORDERED: VANCOMYCIN 1000 MG/NS 250 ML (for <70 kg) IV SCH ×2 (06:45)
[2017-08-10] MEDS ORDERED: DEXAMETHASONE SOD PHOS 20 MG/5 ML VIAL IV SCH (06:45)
[2017-08-10] MEDS ORDERED: CHLORHEXIDINE GLUCONATE 4% SOLN 120 ML BTL TOPICAL SCH (06:45)
[2017-08-10] MEDS ORDERED: POVIDONE IODINE 7.5% SCRUB 118 ML BOTTLE TOPICAL SCH (06:45)
[2017-08-10] MEDS ORDERED: ZOLPIDEM TARTRATE 5 MG TAB PO PRN (07:00)
[2017-08-10] MEDS ORDERED: ONDANSETRON HCL 4 MG/2 ML VIAL IVP PRN (07:00)
[2017-08-10] MEDS ORDERED: BISACODYL 10 MG SUPP RECTAL PRN (07:00)
[2017-08-10] MEDS ORDERED: diphenhydrAMINE HCL 50 MG/ML VIAL IV PUSH PRN (07:00)
[2017-08-10] MEDS ORDERED: Post-op Orders (for Pharmacy) XX ONE (07:00)
[2017-08-10] MEDS ORDERED: HYDR-3288 PO (07:01)
[2017-08-10] MEDS ORDERED: ASPI81CH6 CHEW (07:02)
[2017-08-10] MEDS ORDERED: VANCOMYCIN 1 GM/200 ML INJ 200 ML IV ONE (07:11)
[2017-08-10] MEDS: INSULIN DETEMIR 100 UNITS/ML VIAL SQ SCH ×2 (07:15→21:33)
[2017-08-10] MEDS ORDERED: GENTAMICIN SULFATE 80 MG/2 ML VIAL ONE (07:21)
[2017-08-10 07:22] VITALS: PULSE 85
[2017-08-10] MEDS ORDERED: MIDAZOLAM HCL 2 MG/2 ML VIAL ONE (07:38)
[2017-08-10] MEDS ORDERED: BUPIVACAINE LIPOSOME PF 1.3% 20 ML VIAL ONE (07:38)
[2017-08-10] MEDS ORDERED: TRANEXAMIC PERI-ARTICULAR 3,000 MG/NS 100 ML P-ARTICULR SCH ×2 (08:30)
[2017-08-10] MEDS: METOPROLOL SUCCINATE 25 MG EXTENDED RELEASE TAB PO SCH (09:00)
[2017-08-10] MEDS: TIMOLOL MALEATE 0.5% OPHT SOLN 5 ML BTL RIGHT EYE SCH ×2 (09:00→22:43)
[2017-08-10] MEDS: FUROSEMIDE 80 MG TAB PO SCH (09:00)
[2017-08-10] MEDS: BRIMONIDINE TARTRATE 0.2% OPHT SOLN 5 ML BTL RIGHT EYE SCH ×2 (09:00→22:43)
[2017-08-10] MEDS: LISINOPRIL 10 MG TAB PO SCH (09:00)
[2017-08-10] MEDS: FLUoxetine HCL 20 MG CAP PO SCH ×2 (09:00→21:32)
[2017-08-10] MEDS ORDERED: NON-FORMULARY DRUG (Brimonidine-Timolol Opth Drops (Combigan Opth Drops) 1 DROP) RIGHT EYE SCH (09:00)
[2017-08-10] MEDS: ROPIVACAINE PERI-ARTICULAR INJECTION. P-ARTICULR SCH ×10 (10:34→10:42)
[2017-08-10] MEDS ORDERED: *RESP: ALBUTEROL 2.5 MG/3 ML NEB (PRN) PERIprocedural Use ONLY NEB ONE (10:46)
[2017-08-10] MEDS: SODIUM CHLOR 0.9% 1000 ML INJ 1,000 ML IV SCH ×2 (11:14→20:00)
--- NOTE | 2017-08-10 11:27 | MP ---
cc: Jose Kirk MD DATE OF OPERATION: PREOPERATIVE DIAGNOSIS: Right knee osteoarthritis. POSTOPERATIVE DIAGNOSIS: Right knee osteoarthritis. PROCEDURE: Right total knee arthroplasty. SURGEON: Dr. Jose Kirk. HELP DESK ENGINEER: ОЛЬГА Gill ANESTHESIA: General with a femoral nerve adductor canal block. ESTIMATED BLOOD LOSS: 100 mL. TOURNIQUET TIME: 29 minutes at 300 mmHg. COMPLICATIONS: None. IMPLANTS USED: DePuy Attune size 6 posterior stabilized femoral component, size 5 rotating platform tibial baseplate, size 5 mm polyethylene tibial insert, size 35 patella. JUSTIFICATION: This patient is a 57-year-old female with history of severe endstage osteoarthritis involving the right knee. She has severe disabling pain with standing, walking, ambulation, weight-bearing activities and severe pain at rest. She has failed greater than 3 months of nonoperative conservative treatment to include medication therapy, injections, ambulatory assisted aids, home exercise program, activity modification and weight loss attempts. X-ray of the right knee reveals severe endstage osteoarthritis with bone on bone joint space narrowing, subchondral sclerosis, subchondral cyst, osteophyte formation, varus deformity and subluxation. The patient was counseled as to risks, benefits and alternatives to a total knee arthroplasty. The risks were discussed which include but not limited to anesthesia, bleeding, infection, damage to nerves, blood vessels, pain, stiffness, failure of components, blood clots, pulmonary embolism and even . The patient's pain is severe. The patient favored the benefits over the risks and did wish to proceed with surgery. PROCEDURE IN DETAIL: Written consent was obtained. The patient was identified by name and taken to the operating room and placed supine on the operating table. General anesthesia was administered as well as 2 grams of IV Ancef, 1 gram of IV vancomycin. She did receive an ultrasound guided adductor canal femoral nerve block by the anesthesiologist. A well-padded tourniquet was placed on the right thigh. The right lower extremity was prepped and draped using isopropyl alcohol and Hibiclens solution and ChloraPrep solution. After a timeout was performed an Esmarch bandage was used to exsanguinate the right lower extremity and tourniquet was inflated to 300 mmHg. A longitudinal incision was made over the anterior aspect of the right knee. A medial parapatellar arthrotomy was performed. The patella was everted. The patella resection guide was used to resect 9 mm of the patella. The size 35 mm guide was placed. Two drill holes were placed and the 35 mm trial fit well. Attention was turned to the femur. Intramedullary guide was placed and distal femoral guide was set to remove 11 mm of distal femur 5 degrees off the anatomic valgus axis alignment. An oscillating saw was used to perform the distal femoral cut. Attention was turned to the tibia where an extramedullary tibial guide was set to remove 5 mm of the lowest portion of the medial tibial plateau. The tibial guide was pinned in place and tibia cut was performed. A 5 mm spacer block showed full extension. Attention was turned back to the femur. AP sizing block measured a size 6. Anterior reference 3 degree external rotation guide was used to pin a size [address] Anterior, posterior and chamfer cuts were performed. A size 6 PCL box cut was pinned in place and PCL was boxed out with an oscillating saw. The medial and lateral meniscus remnants were removed as well as bone and soft tissue debris from the posterior portion of the knee. A size 5 tibia baseplate was pinned in place and the tibia was drilled with a punch. Trial components were evaluated and final components were pinned in place. With the current components the leg could achieve full extension 0 degrees, flexion to 140, no evidence of tibial liftoff. Varus/valgus balance appeared appropriate and symmetric and the patella was noted to track centrally. With the tourniquet deflated Bovie cautery was used for hemostasis. The surgical wound was thoroughly irrigated with sterile saline pulse lavage antibiotic impregnated solution. The arthrotomy incision was closed with #1 Vicryl suture, subcutaneous layer with 2-0 Vicryl suture, skin was closed with Dermabond. Sterile dressings were applied. The patient tolerated the procedure well with no intraoperative complications noted. Wild Artis, physician instruction assistant principal certified was present during the entire procedure to include patient positioning, the procedure itself. The medical necessity of physician instruction assistant principal was indicated in this case due to the complexity of the procedure. He assisted with appropriate manipulation of the leg and also retraction of muscle, tendon, bone, neurovascular structure. He assisted with preparation of bone and also implantation of the prosthetic replacement. MD ROSIE Evans/TL/[place] , 10:10 AM , 10:54 AM
[2017-08-10] MEDS ORDERED: *MEPERIDINE 25 MG INJ VIAL PERIprocedural Use ONLY ONE (11:38)
--- NOTE | 2017-08-10 11:41 | RADRPT ---
EXAM DATE/TIME: 08/10/2017 11:04 [facility] COMPARISON: CHEST SINGLE AP, January 24, 2017, 1:50. INDICATIONS : Post total right knee replacement. MEDICAL HISTORY : Hypertension. Diabetes mellitus type II. SURGICAL HISTORY : None. ENCOUNTER: Initial ACUITY: 1 day PAIN SCORE: Non-responsive. LOCATION: Right knee. FINDINGS: The patient is post right knee arthroplasty. Orthopedic hardware is in excellent position. Alignment is good. There is some gas within the subcutaneous soft tissues. CONCLUSION: 1. Orthopedic hardware in excellent position. Ever Aguirre MD on August 10, 2017 at 11:38 Board Certified Radiologist. This report was verified electronically.
[2017-08-10] MEDS ORDERED: ONDANSETRON HCL 4 MG/2 ML VIAL IV ONE (12:00)
[2017-08-10] MEDS ORDERED: PROPOFOL 200 MG/20 ML AMP IV ONE (12:00)
[2017-08-10] MEDS ORDERED: LIDOCAINE HCL 1% PF 5 ML SYRINGE OTHER ONE (12:00)
[2017-08-10] MEDS ORDERED: LACTATED RINGER'S 1000 ML INJ 1,000 ML IV ONE (12:00)
[2017-08-10] MEDS ORDERED: PHENYLEPH/NS 1000 MCG/10 ML SYR IV ONE (12:00)
[2017-08-10] MEDS ORDERED: GLYCOPYRROLATE 1 MG/5 ML SYRINGE IV PUSH ONE (12:00)
[2017-08-10] MEDS ORDERED: ROCURONIUM INJ 50 MG/5 ML SYRINGE IV PUSH ONE (12:00)
[2017-08-10] MEDS ORDERED: NEOSTIGMINE 5 MG/5 ML SYRINGE IV PUSH ONE (12:00)
[2017-08-10] MEDS ORDERED: DO NOT ADM ANY ANTICOAGULANT DRUGS PRN (12:15)
[2017-08-10] MEDS: ceFAZolin 2 GM PREMIX 50 ML IV SCH ×2 (12:45→17:45)
[2017-08-10] MEDS ORDERED: *morphine SULFATE 4 MG/ML PERIprocedure ONLY ONE (12:59)
--- NOTE | 2017-08-10 15:28 | PD.CONS ---
HPI Service [facility] Hospitalists Consult Requested By Dr. Kirk Reason for Consult Medical management Primary Care Physician Chikis Gaines M.D. Diagnoses: (1) Chronic diastolic congestive heart failure (2) Primary localized osteoarthrosis, lower leg (3) DM (diabetes mellitus) (4) Hypertension History of Present Illness The patient is a 57-year-old female admitted to the hospital for right total knee arthroplasty. Hospitalist consultation was requested for medical management. Patient reports a history of insulin-dependent diabetes mellitus, congestive heart failure, stage III kidney disease. She reports pain in her right knee. No other complaints at this time. Review of Systems Constitutional: DENIES: Fever, Chills, Night Sweats Eyes: DENIES: Blurred vision, Vision loss Ears, nose, mouth, throat: DENIES: Hearing loss Respiratory: DENIES: Cough, Wheezing, Sputum production, Shortness of breath Cardiovascular: DENIES: Chest pain, Palpitations, Dyspnea on Exertion, Lower Extremity Edema Gastrointestinal: DENIES: Abdominal pain, Constipation, Diarrhea, Nausea, Vomiting Genitourinary: DENIES: Urinary frequency, Urinary incontinence, Urgency, Hematuria, Dysuria, Nocturia Musculoskeletal: COMPLAINS OF: Joint pain, DENIES: Muscle aches Integumentary: DENIES: Pruritus, Rash Hematologic/lymphatic: DENIES: Bruising Neurologic: DENIES: Headache Past Family Social History Allergies: Coded Allergies: pregabalin (Verified Allergy, Unknown, DIZZINESS, SLUGGISH, 08/10/17) Past Medical History Insulin-dependent diabetes mellitus Chronic kidney disease stage III Hypertension Congestive heart failure, diastolic Coronary artery disease Depression Hypothyroidism Osteoarthritis Past Surgical History section Cholecystectomy Hysterectomy Reported Medications Toprol-XL 25 mg daily Amlodipine 10 mg daily Lisinopril 10 mg daily Meloxicam 15 mg daily Naproxen 500 mg twice daily Gabapentin 300 mg nightly Fluoxetine 20 mg twice daily Furosemide 80 mg daily Combigan eyedrops every 12 hours in the right eye Protonix 40 mg daily Lantus 75 units before breakfast, 55 units nightly Levothyroxine 25 mcg daily Vitamin D3 1000 units daily Family History Diabetes mellitus Renal failure Heart disease Cancer Social History Quit smoking more than 20 years ago. Denies alcohol or illicit drug use. Physical Exam Vital Signs Vital Signs Date Time Temp Pulse Resp B/P (MAP) Pulse Ox O2 Delivery O2 Flow Rate FiO2 08/10/17 13:00 92 14 112/53 (72) 95 Nasal Cannula 2 08/10/17 12:00 86 19 104/57 (73) 94 Nasal Cannula 3 08/10/17 11:30 88 19 101/57 (72) 95 Nasal Cannula 4 08/10/17 11:15 87 17 106/57 (73) 95 Nasal Cannula 4 08/10/17 11:00 93 20 134/61 (85) 93 Nasal Cannula 4 08/10/17 10:45 91 19 172/82 (112) 94 Simple Mask 8 08/10/17 10:38 98.7 93 25 164/96 (118) 87 Simple Mask 8 08/10/17 08:07 90 20 142/65 (90) 94 08/10/17 07:22 99 Nasal Cannula 2 08/10/17 07:22 85 08/10/17 06:45 99.0 91 18 167/98 (121) 93 Physical Exam GENERAL: Obese female in no acute distress. Sitting up in a chair. HEENT: Normocephalic, atraumatic. Pupils equal, round and reactive. Extraocular movements intact. No scleral icterus. No injection or drainage. Oropharynx is clear. Mucous membranes are moist. CARDIOVASCULAR: Regular rate and rhythm without murmurs, gallops, or rubs. RESPIRATORY: Clear to auscultation. No wheezes, rales, or rhonchi. Breathing is non-labored. GASTROINTESTINAL: Abdomen soft, non-tender, nondistended. EXTREMITIES: 1+ bilateral lower extremity edema. No calf tenderness. Left knee bandaged. SCDs. PSYCH: Alert and oriented x 3. Imaging Last Impressions Knee X-Ray 08/10/17 0659 Signed Impressions: Service Date/Time: Thursday, August 10, 2017 11:04 - CONCLUSION: 1. Orthopedic hardware in excellent position. Ever Aguirre MD Assessment and Plan Assessment and Plan 1. Osteoarthritis: Status post right total knee arthroplasty. Management per orthopedic surgery. Continue pain control, bowel regimen, physical therapy. 2. Chronic diastolic congestive heart failure: Not in acute exacerbation. Continue Lasix, lisinopril, metoprolol. 3. Insulin-dependent diabetes mellitus: Continue home insulin regimen. Diabetic diet. Monitor Accu-Cheks and cover with sliding scale insulin. 4. Depression: Continue fluoxetine. 5. Hypertension: Continue metoprolol, amlodipine, lisinopril. 6. Hypothyroidism: Continue Synthroid. 7. DVT prophylaxis: Lovenox. Yousuf Bustillos MD Aug 10, 2017 15:28
[2017-08-10] MEDS ORDERED: GLUCAGON 1 MG/ML VIAL OTHER PRN (15:30)
[2017-08-10] MEDS ORDERED: DEXTROSE 50% IN WATER 50 ML VIAL(D50) IV PUSH PRN (15:30)
[2017-08-10 16:00] VITALS: BP 114/59; PULSE 94; RESP 18; TEMP 97.4; O2SAT 96
[2017-08-10] MEDS: ACETAMINOPHEN/HYDROcodone 325 MG/7.5 MG TAB PO PRN ×2 (16:08→21:37)
[2017-08-10] MEDS: INSULIN ASPART SUPPLEMENTAL SCALE SQ SCH ×2 (17:45→21:32)
[2017-08-10 20:49] VITALS: BP 138/60; PULSE 98; RESP 17; TEMP 96.9; O2SAT 92
[2017-08-10] MEDS: GABAPENTIN 300 MG CAP PO SCH (21:32)
[2017-08-10 21:38] VITALS: O2SAT 96
[2017-08-10 23:55] VITALS: BP 130/65; PULSE 89; RESP 18; TEMP 97.5; O2SAT 96
[2017-08-11] VITALS (9 sets, daily range): BP systolic 94–137; BP diastolic 46–73; PULSE 73–82; RESP 16–17; TEMP 95.8–97.1; O2SAT 91–98
[2017-08-11] MEDS: ceFAZolin 2 GM PREMIX 50 ML IV SCH (00:59)
[2017-08-11] MEDS: LEVOTHYROXINE SODIUM 25 MCG TAB PO SCH (05:17)
[2017-08-11] MEDS: SODIUM CHLOR 0.9% 1000 ML INJ 1,000 ML IV SCH ×3 (05:18→20:07)
[2017-08-11] MEDS: ACETAMINOPHEN/HYDROcodone 325 MG/7.5 MG TAB PO PRN ×4 (05:20→23:54)
[2017-08-11 06:44] LABS: HEMATOCRIT 32.7 % (35.0-46.0); HEMOGLOBIN 10.8 GM/DL (11.6-15.3); MEAN CELL VOLUME 90.9 FL (80.0-100.0); MEAN PLATELET VOLUME 8.7 FL (7.0-11.0); PLATELET COUNT 235 TH/MM3 (150-450); RED CELL DISTRIBUTION WIDTH 14.2 % (11.6-17.2); WHITE BLOOD COUNT 9.7 TH/MM3 (4.0-11.0)
[2017-08-11] MEDS: INSULIN DETEMIR 100 UNITS/ML VIAL SQ SCH ×2 (06:45→20:22)
[2017-08-11] MEDS: MORPHINE SULFATE 2 MG/ML INJ IV PUSH PRN ×3 (06:50→20:24)
[2017-08-11 07:05] LABS: BICARBONATE 30.9 MEQ/L (21.0-32.0); CALCIUM 7.9 MG/DL (8.5-10.1); CREATININE 1.71 MG/DL (0.50-1.00)
[2017-08-11] MEDS: INSULIN ASPART SUPPLEMENTAL SCALE SQ SCH ×4 (08:00→20:22)
--- NOTE | 2017-08-11 08:09 | PD.ORT.PN ---
Subjective Post Op Day #: 1 Subjective Remarks knee painful Objective Vitals Vital Signs Date Time Temp Pulse Resp B/P (MAP) Pulse Ox O2 Delivery O2 Flow Rate FiO2 08/11/17 07:53 97.1 75 17 94/46 (62) 91 08/11/17 03:27 96.8 77 17 117/53 (74) 96 08/10/17 23:55 97.5 89 18 130/65 (86) 96 08/10/17 21:38 96 Nasal Cannula 2.00 08/10/17 20:49 96.9 98 17 138/60 (86) 92 08/10/17 16:00 97.4 94 18 114/59 (77) 96 08/10/17 13:00 92 14 112/53 (72) 95 Nasal Cannula 2 08/10/17 12:00 86 19 104/57 (73) 94 Nasal Cannula 3 08/10/17 11:30 88 19 101/57 (72) 95 Nasal Cannula 4 08/10/17 11:15 87 17 106/57 (73) 95 Nasal Cannula 4 08/10/17 11:00 93 20 134/61 (85) 93 Nasal Cannula 4 08/10/17 10:45 91 19 172/82 (112) 94 Simple Mask 8 08/10/17 10:38 98.7 93 25 164/96 (118) 87 Simple Mask 8 I/O 08/10/17 08/10/17 08/10/17 08/11/17 08/11/17 08/11/17 07:00 15:00 23:00 07:00 15:00 23:00 Intake Total 1350 ml 360 ml 1791 ml Output Total 325 ml 400 ml 300 ml Balance 1025 ml -40 ml 1491 ml Intake Oral 360 ml 360 ml IV Total 1350 ml 1431 ml Output Urine Total 125 ml 400 ml 300 ml Estimated Blood Loss 200 ml # Bowel Movements 0 0 Result Diagram: 08/11/17 0535 08/11/17 0535 Objective Remarks in bed, nad dressing scant bloody drainage neg homans nvi Assessment & Plan Ortho Post Op Day #: 1 Problem List: Assessment and Plan s/p R TKA wbat ok to maintain dressing unless saturated lovenox, d/c on asa81 d/c planning home with [facility] and pt rx in chart f/up dr. gilbert 2 weeks Jose Artis Aug 11, 2017 08:09
--- NOTE | 2017-08-11 08:11 | HHI.DCPOC ---
Discharge Care Plan Diagnosis: (1) Primary localized osteoarthrosis, lower leg Your Health Problems Are: Difficulty with ADL Goals to Promote Your Health * To prevent worsening of your condition and complications * To maintain your health at the optimal level Directions to Meet Your Goals Take your medications as prescribed Follow your dietary instruction Follow activity as directed Keep your appointments as scheduled Take your immunizations and boosters as scheduled If your symptoms worsen call your PCP, if no PCP go to Urgent Care Center or Emergency Room Smoking is Dangerous to Your Health. Avoid second hand smoke Call the 24-hour hour crisis hotline for domestic abuse at Jose Artis Aug 11, 2017 08:11
--- NOTE | 2017-08-11 08:12 | HHI.FF ---
Face to Face Verification Diagnosis: (1) Primary localized osteoarthrosis, lower leg Physical Therapy Gait training, Safety evaluation, Transfer training, bed to chair Knee: Total knee, Protocol: Right, Full weight bearing Right LE Weight Bearing: WB as tolerated Nursing RN: 3 days/week x 2 weeks Nursing: Dressing changes Dressing Changes: Daily dressing change I have seen patient Elizabeth Husain on 08/11/17. My clinical findings support the need for the requested home health care services because: Limited ability to care for self High risk of falls I certify that my clinical findings support that this patient is homebound because: Post-op weakness Unsteady gait/balance Jose Artis Aug 11, 2017 08:12
[2017-08-11] MEDS: FLUoxetine HCL 20 MG CAP PO SCH ×2 (08:28→20:21)
[2017-08-11] MEDS: PANTOPRAZOLE SOD 40 MG DELAYED RELEASE TAB PO SCH (08:28)
[2017-08-11] MEDS: LISINOPRIL 10 MG TAB PO SCH (08:29)
[2017-08-11] MEDS: METOPROLOL SUCCINATE 25 MG EXTENDED RELEASE TAB PO SCH (08:29)
[2017-08-11] MEDS: FUROSEMIDE 80 MG TAB PO SCH (08:29)
[2017-08-11] MEDS: TIMOLOL MALEATE 0.5% OPHT SOLN 5 ML BTL RIGHT EYE SCH ×2 (08:30→20:23)
[2017-08-11] MEDS: BRIMONIDINE TARTRATE 0.2% OPHT SOLN 5 ML BTL RIGHT EYE SCH ×2 (08:30→20:23)
[2017-08-11] MEDS: CHOLECALCIFEROL (VIT D3) 1000 UNIT TAB PO SCH (08:37)
[2017-08-11] MEDS ORDERED: ENOXAPARIN SODIUM 40 MG/0.4 ML SYRINGE SQ SCH (10:00)
--- NOTE | 2017-08-11 13:07 | HHI.PR ---
Subjective Remarks Follow-up diabetes, hypertension. Patient had some shortness of breath this morning and oxygen saturation was documented at 91%. She was placed on oxygen per nasal cannula and her O2 sat improved to 97%. She denies shortness of breath or chest pain at this time. Pain is adequately controlled. Objective Vitals Vital Signs Date Time Temp Pulse Resp B/P (MAP) Pulse Ox O2 Delivery O2 Flow Rate FiO2 08/11/17 12:00 96.3 73 17 122/73 (89) 98 08/11/17 10:26 78 111/59 (76) 08/11/17 09:10 97 Nasal Cannula 2.00 08/11/17 07:53 97.1 75 17 94/46 (62) 91 08/11/17 03:27 96.8 77 17 117/53 (74) 96 08/10/17 23:55 97.5 89 18 130/65 (86) 96 08/10/17 21:38 96 Nasal Cannula 2.00 08/10/17 20:49 96.9 98 17 138/60 (86) 92 08/10/17 16:00 97.4 94 18 114/59 (77) 96 I/O 08/10/17 08/10/17 08/10/17 08/11/17 08/11/17 08/11/17 07:00 15:00 23:00 07:00 15:00 23:00 Intake Total 1350 ml 360 ml 1791 ml 528 ml Output Total 325 ml 400 ml 300 ml Balance 1025 ml -40 ml 1491 ml 528 ml Intake Oral 360 ml 360 ml IV Total 1350 ml 1431 ml 528 ml Output Urine Total 125 ml 400 ml 300 ml Estimated Blood Loss 200 ml # Bowel Movements 0 0 Result Diagram: 08/11/17 0535 08/11/17 0535 Imaging Last Impressions Knee X-Ray 08/10/17 0659 Signed Impressions: Service Date/Time: Thursday, August 10, 2017 11:04 - CONCLUSION: 1. Orthopedic hardware in excellent position. Ever Aguirre MD Objective Remarks General: No acute distress. In a wheelchair. Heart: Regular rate and rhythm. No murmur. Lungs: Clear to auscultation bilaterally. No wheezes, rales, or rhonchi. Breathing is nonlabored. Abdomen: Soft, nontender, nondistended. Extremities: Trace to 1+ bilateral lower extremity edema. Right knee bandaged. Psych: Alert and oriented. Procedures 08/10/17 right total knee arthroplasty Urinary Catheter: No Vascular Central Line Catheter: No A/P Problem List: (1) Chronic diastolic congestive heart failure ICD Code: I50.32 - Chronic diastolic (congestive) heart failure (2) Primary localized osteoarthrosis, lower leg ICD Code: M17.10 - Unilateral primary osteoarthritis, unspecified knee (3) DM (diabetes mellitus) ICD Code: E11.9 - Type 2 diabetes mellitus without complications Status: Acute (4) Hypertension ICD Code: I10 - Essential (primary) hypertension Status: Acute Assessment and Plan 1. Osteoarthritis: Status post right total knee arthroplasty. Management per orthopedic surgery. Continue pain control, bowel regimen, physical therapy. 2. Chronic diastolic congestive heart failure: Not in acute exacerbation. Continue Lasix, lisinopril, metoprolol. 3. Insulin-dependent diabetes mellitus: Glucose has been elevated. Continue home insulin regimen. Diabetic diet. Monitor Accu-Cheks and cover with sliding scale insulin. 4. Depression: Continue fluoxetine. 5. Hypertension: Continue metoprolol, amlodipine, lisinopril. Blood pressure borderline low this morning. Improved this afternoon. 6. Hypothyroidism: Continue Synthroid. 7. DVT prophylaxis: Lovenox. 8. Transient shortness of breath: Patient's oxygen saturation decreased slightly this morning. She was placed on oxygen. She is now on room air. No symptoms at this time. If patient continues to require oxygen develops worsening dyspnea, would check chest x-ray. 9. Chronic kidney disease stage III: Monitor BUN and creatinine. Discharge Planning Possible discharge home tomorrow per orthopedic surgery. Yousuf Bustillos MD Aug 11, 2017 13:07
[2017-08-11] MEDS ORDERED: WALKER WHEELS/F1 MIS (15:44)
[2017-08-11] MEDS: DOCUSATE SODIUM 100 MG CAP PO SCH (20:21)
[2017-08-11] MEDS: MULTIVITAMINS/MINERALS THERAPEUTIC TAB PO SCH (20:21)
[2017-08-11] MEDS: GABAPENTIN 300 MG CAP PO SCH (20:22)
[2017-08-12] VITALS (12 sets, daily range): BP systolic 116–149; BP diastolic 54–79; PULSE 76–111; RESP 16–19; TEMP 96.7–98.7; O2SAT 92–98
[2017-08-12] MEDS: MORPHINE SULFATE 2 MG/ML INJ IV PUSH PRN ×2 (00:49→07:38)
[2017-08-12] MEDS: ACETAMINOPHEN/HYDROcodone 325 MG/7.5 MG TAB PO PRN ×3 (05:48→21:05)
[2017-08-12] MEDS: LEVOTHYROXINE SODIUM 25 MCG TAB PO SCH (05:48)
[2017-08-12] MEDS: MAGNESIUM HYDROXIDE SUSP 30 ML CUP PO PRN ×2 (05:49→21:04)
--- NOTE | 2017-08-12 07:58 | PD.ORT.PN ---
Subjective Post Op Day #: 2 Subjective Remarks knee painful, had to morphine this am. Objective Vitals Vital Signs Date Time Temp Pulse Resp B/P (MAP) Pulse Ox O2 Delivery O2 Flow Rate FiO2 08/12/17 04:02 97 08/12/17 04:00 96.9 82 16 135/64 (87) 94 08/12/17 00:07 76 08/12/17 00:00 96.7 84 19 139/69 (92) 92 08/11/17 20:11 77 08/11/17 20:00 96.2 82 16 137/65 (89) 91 08/11/17 17:42 78 08/11/17 16:00 95.8 75 17 102/64 (77) 98 08/11/17 12:00 96.3 73 17 122/73 (89) 98 08/11/17 10:26 78 111/59 (76) 08/11/17 09:10 97 Nasal Cannula 2.00 I/O 08/11/17 08/11/17 08/11/17 08/12/17 08/12/17 08/12/17 07:00 15:00 23:00 07:00 15:00 23:00 Intake Total 1791 ml 948 ml 240 ml 0 ml Output Total 300 ml Balance 1491 ml 948 ml 240 ml 0 ml Intake Oral 360 ml 420 ml 240 ml 0 ml IV Total 1431 ml 528 ml Output Urine Total 300 ml # Voids 1 2 2 # Bowel Movements 0 0 0 0 Result Diagram: 08/11/17 0535 08/11/17 0535 Objective Remarks in bed, nad dressing with bloody discharge. dressing changed, no erythema also bleeding from abdomen from lovenox injection site yesterday am. painful RLE including calf nvi Assessment & Plan Ortho Post Op Day #: 2 Problem List: Assessment and Plan s/p R TKA wbat daily dressing changes doppler US RLE - patient bleeding from incision site and lovenox injection site , if doppler negative d/c lovenox and trasition to asa81 BID. lovenox, d/c on asa81 d/c planning home with [facility] and pt - still very painful. may need to hold d/c today depending upon PT performance. also may need to consider snf rx in chart f/up dr. gilbert 2 weeks Jose Artis Aug 12, 2017 07:58
[2017-08-12] MEDS: INSULIN DETEMIR 100 UNITS/ML VIAL SQ SCH ×2 (08:00→21:00)
[2017-08-12] MEDS: MULTIVITAMINS/MINERALS THERAPEUTIC TAB PO SCH ×2 (08:18→21:05)
[2017-08-12] MEDS: FLUoxetine HCL 20 MG CAP PO SCH ×2 (08:18→21:05)
[2017-08-12] MEDS: METOPROLOL SUCCINATE 25 MG EXTENDED RELEASE TAB PO SCH (08:18)
[2017-08-12] MEDS: FUROSEMIDE 80 MG TAB PO SCH (08:19)
[2017-08-12] MEDS: LISINOPRIL 10 MG TAB PO SCH (08:19)
[2017-08-12] MEDS: DOCUSATE SODIUM 100 MG CAP PO SCH (08:20)
[2017-08-12] MEDS: PANTOPRAZOLE SOD 40 MG DELAYED RELEASE TAB PO SCH (08:20)
[2017-08-12] MEDS: CHOLECALCIFEROL (VIT D3) 1000 UNIT TAB PO SCH (08:27)
[2017-08-12] MEDS: TIMOLOL MALEATE 0.5% OPHT SOLN 5 ML BTL RIGHT EYE SCH ×2 (08:28→21:06)
[2017-08-12] MEDS: BRIMONIDINE TARTRATE 0.2% OPHT SOLN 5 ML BTL RIGHT EYE SCH ×2 (08:28→21:06)
[2017-08-12] MEDS ORDERED: BENZOCAINE-MENTHOL (SUGAR FREE) 15 MG-3.6 MG LOZENGE BUCCAL PRN (09:00)
--- NOTE | 2017-08-12 09:04 | HHI.PR ---
Subjective Remarks Follow up for diabetes, hypertension. The patient reports increased right knee pain, mostly across the anterior knee but also into the right calf. Denies fevers/chills. She has some throat irritation and nonproductive cough since surgery yesterday. Denies any chest pain or shortness of breath. She is tolerating oral intake. Her last BM was Wednesday 08/09. She does not feel ready for discharge today secondary to the pain. Objective Vitals Vital Signs Date Time Temp Pulse Resp B/P (MAP) Pulse Ox O2 Delivery O2 Flow Rate FiO2 08/12/17 08:00 98.7 111 17 130/64 (86) 97 08/12/17 04:02 97 08/12/17 04:00 96.9 82 16 135/64 (87) 94 08/12/17 00:07 76 08/12/17 00:00 96.7 84 19 139/69 (92) 92 08/11/17 20:11 77 08/11/17 20:00 96.2 82 16 137/65 (89) 91 08/11/17 17:42 78 08/11/17 16:00 95.8 75 17 102/64 (77) 98 08/11/17 12:00 96.3 73 17 122/73 (89) 98 08/11/17 10:26 78 111/59 (76) 08/11/17 09:10 97 Nasal Cannula 2.00 I/O 08/11/17 08/11/17 08/11/17 08/12/17 08/12/17 08/12/17 07:00 15:00 23:00 07:00 15:00 23:00 Intake Total 1791 ml 948 ml 240 ml 0 ml Output Total 300 ml Balance 1491 ml 948 ml 240 ml 0 ml Intake Oral 360 ml 420 ml 240 ml 0 ml IV Total 1431 ml 528 ml Output Urine Total 300 ml # Voids 1 2 2 # Bowel Movements 0 0 0 0 Result Diagram: 08/11/17 0535 08/11/17 0535 Imaging Last Impressions Knee X-Ray 08/10/17 0659 Signed Impressions: Service Date/Time: Thursday, August 10, 2017 11:04 - CONCLUSION: 1. Orthopedic hardware in excellent position. Ever Aguirre MD Objective Remarks GENERAL: Well-nourished, well-developed obese female patient in NAD. SKIN: Warm and dry. HEENT: Normocephalic. Atraumatic. Pupils equal and round. Mucous membranes pink and moist. NECK: Supple. Trachea midline. CARDIOVASCULAR: Regular rate and rhythm. No murmur appreciated. RESPIRATORY: No accessory muscle use. Clear to auscultation. Breath sounds equal bilaterally. GASTROINTESTINAL: Abdomen soft, non-tender, nondistended. Normoactive bowel sounds x4. MUSCULOSKELETAL: No obvious deformities. Right knee with surgical dressing, CDI. Diffuse tenderness to palpation throughout the knee and posterior calf on the right. Nontender on the left. NEUROLOGICAL: Awake and alert. No obvious cranial nerve deficits. Motor grossly within normal limits. Normal speech. PSYCHIATRIC: Appropriate mood and affect; insight and judgment normal. Procedures 08/10/17 right total knee arthroplasty Medications and IVs Current Medications Medications (Trade) Dose Ordered Sig/Crys Route Start Time Stop Time Status Last Admin (Betadine 5% Antisepsis Kit) 1 applic WELDING TESTER PRN EACH NARE 08/10/17 06:30 08/13/17 06:29 08/10/17 07:00 (Norvasc) 10 mg DAILY PO 08/10/17 09:00 (Vitamin D3) 1,000 units DAILY PO 08/11/17 09:00 08/12/17 08:27 (PROzac) 20 mg BID PO 08/10/17 09:00 08/12/17 08:18 (Lasix) 80 mg DAILY PO 08/10/17 09:00 08/12/17 08:19 (Neurontin) 300 mg HS PO 08/10/17 21:00 08/11/17 20:22 (Levemir Inj) 55 units HS SQ 08/10/17 21:00 08/11/17 20:22 (Synthroid) 25 mcg DAILY@0600 PO 08/11/17 06:00 08/12/17 05:48 (Prinivil) 10 mg DAILY PO 08/10/17 09:00 (Toprol Xl) 25 mg DAILY PO 08/10/17 09:00 08/12/17 08:18 (Protonix) 40 mg DAILY PO 08/11/17 09:00 08/12/17 08:20 (Lovenox Inj) 40 mg Q24H SQ 08/11/17 10:00 08/11/17 10:22 (Morphine Inj) 3 mg Q3H PRN IV PUSH 08/10/17 07:00 08/12/17 07:38 ([place] 7.5-325 Mg) 1 tab Q4H PRN PO 08/10/17 07:00 ([place] 7.5-325 Mg) 2 tab Q4H PRN PO 08/10/17 07:00 08/12/17 05:48 (Theragran M Tab) 1 tab BID PO 08/11/17 21:00 10/10/17 20:59 08/12/17 08:18 (Zofran Inj) 4 mg Q6H PRN IVP 08/10/17 07:00 (Colace) 100 mg BID PO 08/11/17 21:00 08/12/17 08:20 (Ambien) 5 mg HS PRN PO 08/10/17 07:00 (Dulcolax Supp) 10 mg DAILY PRN RECTAL 08/10/17 07:00 (Benadryl Inj) 25 mg Q6H PRN IV PUSH 08/10/17 07:00 (Alphagan 0.2% Opth Soln) 1 drop Q12HR RIGHT EYE 08/10/17 09:00 08/12/17 08:28 (Timoptic 0.5% Opth Soln) 1 drop Q12HR RIGHT EYE 08/10/17 09:00 08/12/17 08:28 (D50w (Vial) Inj) 50 ml UNSCH PRN IV PUSH 08/10/17 15:30 (Glucagon Inj) 1 mg UNSCH PRN OTHER 08/10/17 15:30 (NovoLOG SUPPLEMENTAL SCALE) 1 ACHS SLIDING SCALE SQ 08/10/17 17:00 08/11/17 20:22 (Levemir Inj) 75 units DAILY@0800 SQ 08/12/17 08:00 (Milk Of Magnesia Liq) 30 ml BID PRN PO 08/11/17 23:30 08/12/17 05:49 A/P Problem List: (1) Chronic diastolic congestive heart failure ICD Code: I50.32 - Chronic diastolic (congestive) heart failure (2) Primary localized osteoarthrosis, lower leg ICD Code: M17.10 - Unilateral primary osteoarthritis, unspecified knee (3) DM (diabetes mellitus) ICD Code: E11.9 - Type 2 diabetes mellitus without complications Status: Acute (4) Hypertension ICD Code: I10 - Essential (primary) hypertension Status: Acute Assessment and Plan 57-year-old female with history of insulin dependent diabetes, CKD stage III, HTN, diastolic CHF, CAD, hypothyroidism, depression, osteoarthritis, admitted to the hospital for right total knee arthroplasty. Hospitalist consultation was requested for medical management. Osteoarthritis: Status post right total knee arthroplasty. -Management per orthopedic surgery. -Continue pain control, bowel regimen, physical therapy. -Patient with increased right knee/calf pain today, checking Doppler U/S Chronic diastolic congestive heart failure: Not in acute exacerbation. -Continue Lasix, lisinopril, metoprolol. -Monitor for fluid overload Insulin-dependent diabetes mellitus: Glucose has been elevated. -Continue home insulin regimen. -Diabetic diet. -Monitor Accu-Cheks and cover with sliding scale insulin. Hypertension: Chronic, BP well controlled. -Continue patient's metoprolol, amlodipine, lisinopril. -Monitor BP, adjust antihypertensives as needed Transient shortness of breath: Patient's oxygen saturation decreased slightly this morning. She was placed on oxygen. She is now on room air. No symptoms at this time. -no significant complaints of chest pain or shortness of breath -attempt to wean oxygen today Chronic kidney disease stage III: chronic, stable -avoid nephrotoxins -Monitor BUN and creatinine. Hypothyroidism: chronic -Continue Synthroid. Depression: Chronic -Continue fluoxetine. Constipation: suspect secondary to opiates. Last BM 08/09. -Start guillermina-colace 2 tabs po bid -Constipation protocol meds prn -Given MOM this morning -Monitor for BM DVT prophylaxis: Lovenox. Discharge Planning Cleared for discharge with [facility] today by ortho however then patient developed increased right knee/calf pain. Awaiting Doppler U/S. Otherwise patient is medically stable. Problem Qualifiers (1) Primary localized osteoarthrosis, lower leg: Qualified Codes: M17.11 - Unilateral primary osteoarthritis, right knee Ruth Ann Roberto PA-C Aug 12, 2017 9:04 am
[2017-08-12] MEDS: INSULIN ASPART SUPPLEMENTAL SCALE SQ SCH ×4 (09:14→21:00)
[2017-08-12 10:48] LABS: HEMATOCRIT 33.3 % (35.0-46.0); HEMOGLOBIN 10.9 GM/DL (11.6-15.3); MEAN CELL VOLUME 90.9 FL (80.0-100.0); MEAN CORPUSCULAR HEMOGLOBIN 29.8 PG (27.0-34.0); MEAN CORPUSCULAR HGB CONC 32.8 % (32.0-36.0); MEAN PLATELET VOLUME 8.9 FL (7.0-11.0); PLATELET COUNT 239 TH/MM3 (150-450); RED BLOOD COUNT 3.66 MIL/MM3 (4.00-5.30); RED CELL DISTRIBUTION WIDTH 14.3 % (11.6-17.2); WHITE BLOOD COUNT 8.4 TH/MM3 (4.0-11.0)
--- NOTE | 2017-08-12 11:09 | RADRPT ---
EXAM DATE/TIME: 08/12/2017 09:50 [facility] COMPARISON: No previous studies available for comparison. INDICATIONS : Post right total knee replacement. Right leg pain and swelling. MEDICAL HISTORY : Thyroid disease. [place]. CVA. CHF. Pancreatitis. SURGICAL HISTORY : section. Hysterectomy. Cholecystectomy. ENCOUNTER: Subsequent ACUITY: 1 day PAIN SCORE: 10/10 LOCATION: Right leg. TECHNIQUE: Venous ultrasound of the leg was performed from the inguinal ligament to the proximal calf. Real-darlin e, color Doppler and spectral tracing, compression and augmentation techniques were used. FINDINGS: There is normal compressibility of the deep venous system from the inguinal region to the proximal ca lf. No echogenic clot is seen in the lumen of the common femoral, femoral, popliteal, and posterior tibial veins. There is a normal response of the venous system to proximal and distal augmentation an d respiration. CONCLUSION: No evidence of deep venous thrombosis within the right lower extremity. Jamar Sesay MD on August 12, 2017 at 11:07 Board Certified Radiologist. This report was verified electronically.
[2017-08-12 11:20] LABS: BICARBONATE 30.3 MEQ/L (21.0-32.0); CALCIUM 8.3 MG/DL (8.5-10.1); CREATININE 1.38 MG/DL (0.50-1.00)
[2017-08-12] MEDS: ASPIRIN 81 MG CHEW TAB PO SCH (13:19)
[2017-08-12] MEDS ORDERED: LACTULOSE SYRUP 20 GM/30 ML CUP PO PRN (18:30)
[2017-08-12] MEDS: DOCUSATE SODIUM 50 MG/SENNA 8.6 MG TAB PO SCH (21:04)
[2017-08-12] MEDS: GABAPENTIN 300 MG CAP PO SCH (21:05)
[2017-08-13] VITALS (12 sets, daily range): BP systolic 115–162; BP diastolic 55–86; PULSE 66–107; RESP 16–18; TEMP 98–99.3; O2SAT 90–99
[2017-08-13] MEDS: ACETAMINOPHEN/HYDROcodone 325 MG/7.5 MG TAB PO PRN (03:43)
[2017-08-13 04:46] LABS: HEMATOCRIT 32.5 % (35.0-46.0); HEMOGLOBIN 10.6 GM/DL (11.6-15.3); MEAN CELL VOLUME 89.8 FL (80.0-100.0); MEAN CORPUSCULAR HEMOGLOBIN 29.1 PG (27.0-34.0); MEAN CORPUSCULAR HGB CONC 32.5 % (32.0-36.0); MEAN PLATELET VOLUME 8.6 FL (7.0-11.0); PLATELET COUNT 226 TH/MM3 (150-450); RED BLOOD COUNT 3.62 MIL/MM3 (4.00-5.30); RED CELL DISTRIBUTION WIDTH 14.6 % (11.6-17.2); WHITE BLOOD COUNT 11.2 TH/MM3 (4.0-11.0)
[2017-08-13 05:11] LABS: BICARBONATE 31.6 MEQ/L (21.0-32.0); CALCIUM 8.4 MG/DL (8.5-10.1); CREATININE 1.12 MG/DL (0.50-1.00)
--- NOTE | 2017-08-13 05:24 | RADRPT ---
EXAM DATE/TIME: 08/13/2017 04:53 [facility] COMPARISON: No previous studies available for comparison. INDICATIONS : Back pain from a fall. MEDICAL HISTORY : Hypertension. Diabetes mellitus type II. Myocardial infarction. Pancreatitis SURGICAL HISTORY : Total knee replacement, right. Hysterectomy. Cholecystectomy. ENCOUNTER: Subsequent ACUITY: 3 days PAIN SCORE: 10/10 LOCATION: Bilateral pelvis FINDINGS: A single frontal view of the pelvis demonstrates no evidence of fracture. The bony pelvic ring is in tact. Bony mineralization is normal. The soft tissues are intact. CONCLUSION: No acute disease. Berto Stevens Jr., MD on August 13, 2017 at 5:23 Board Certified Radiologist. This report was verified electronically.
--- NOTE | 2017-08-13 05:24 | RADRPT ---
EXAM DATE/TIME: 08/13/2017 04:45 [facility] COMPARISON: No previous studies available for comparison. INDICATIONS : Back pain from a fall. MEDICAL HISTORY : Myocardial infarction. Congestive heart failure. Pancreatitis. CVA SURGICAL HISTORY : section. Hysterectomy. Cholecystectomy. ENCOUNTER: Subsequent ACUITY: 3 days PAIN SCORE: 10/10 LOCATION: Bilateral Back FINDINGS: There are five non-rib bearing vertebral bodies. The vertebral bodies are in normal alignment withou t evidence of subluxation or scoliosis. The disc spaces are maintained. The posterior elements are intact without evidence of spondylolysis. The pedicles are intact. Bony mineralization is normal. No fracture is identified. CONCLUSION: No acute disease. Berto Stevens Jr., MD on August 13, 2017 at 5:22 Board Certified Radiologist. This report was verified electronically.
--- NOTE | 2017-08-13 05:26 | RADRPT ---
EXAM DATE/TIME: 08/13/2017 04:55 [facility] COMPARISON: No previous studies available for comparison. INDICATIONS : Bilateral knee pain from a fall. MEDICAL HISTORY : Hypertension. Diabetes mellitus type II. Pancreatitis. [place] CVA SURGICAL HISTORY : Total knee replacement, right. section. Hysterectomy. ENCOUNTER: Subsequent ACUITY: 3 days PAIN SCORE: 10/10 LOCATION: Bilateral knees FINDINGS: Multiple views of the knee show joint space narrowing with periarticular sclerotic change and osteoph yte production most pronounced within the medial compartment. No fracture or dislocation. No joint ef fusion. Soft tissues are unremarkable. CONCLUSION: Advanced tricompartmental osteoarthritis. No acute abnormality. Berto Stevens Jr., MD on August 13, 2017 at 5:23 Board Certified Radiologist. This report was verified electronically.
--- NOTE | 2017-08-13 05:27 | RADRPT ---
EXAM DATE/TIME: 08/13/2017 04:57 [facility] COMPARISON: KNEE RIGHT LTD (1 OR 2 VWS), August 10, 2017, 11:04. INDICATIONS : Bilateral knee pain from a fall. MEDICAL HISTORY : Hypertension. Diabetes mellitus type II. Pancreatitis. [place] CVA SURGICAL HISTORY : Total knee replacement, right. section. Hysterectomy. ENCOUNTER: Subsequent ACUITY: 3 days PAIN SCORE: 10/10 LOCATION: Bilateral knees FINDINGS: 2 views of the knee show a total knee prosthesis in good position. A small amount of fluid noted with in the joint. No fracture or dislocation is observed. Soft tissue swelling is noted. CONCLUSION: Total knee prosthesis in good position. Small residual joint effusion. Berto Stevens Jr., MD on August 13, 2017 at 5:24 Board Certified Radiologist. This report was verified electronically.
[2017-08-13] MEDS: LEVOTHYROXINE SODIUM 25 MCG TAB PO SCH (05:28)
--- NOTE | 2017-08-13 07:54 | PD.ORT.PN ---
Subjective Post Op Day #: 3 Subjective Remarks knee pain improving. did have a fall this am getting OOB and tripped over SCD chord. xrays negative. Objective Vitals Vital Signs Date Time Temp Pulse Resp B/P (MAP) Pulse Ox O2 Delivery O2 Flow Rate FiO2 08/13/17 06:19 98.4 101 18 122/63 (82) 94 08/13/17 05:19 98.7 107 18 161/77 (105) 97 08/13/17 04:19 98.2 102 18 151/72 (98) 95 08/13/17 03:19 98.2 107 18 162/84 (110) 97 08/13/17 00:25 96 Nasal Cannula 2.00 08/13/17 00:14 98.6 90 17 136/71 (92) 98 08/13/17 00:10 93 08/12/17 20:06 97.8 85 19 149/79 (102) 92 08/12/17 20:05 85 08/12/17 19:54 93 Nasal Cannula 1.00 08/12/17 16:54 84 08/12/17 15:52 97.8 81 17 125/73 (90) 93 08/12/17 13:28 98 Nasal Cannula 1.00 08/12/17 11:54 98.3 96 17 116/54 (74) 95 08/12/17 08:00 98.7 111 17 130/64 (86) 97 I/O 08/12/17 08/12/17 08/12/17 08/13/17 08/13/17 08/13/17 07:00 15:00 23:00 07:00 15:00 23:00 Intake Total 0 ml 480 ml 480 ml 360 ml Balance 0 ml 480 ml 480 ml 360 ml Intake Oral 0 ml 480 ml 480 ml 360 ml # Voids 2 2 3 2 # Bowel Movements 0 0 0 0 Result Diagram: 08/13/17 0406 08/13/17 0406 Imaging Last 24 hours Impressions Pelvis X-Ray 08/13/17 0000 Signed Impressions: Service Date/Time: July 04:53 - CONCLUSION: No acute disease. Berto Stevens Jr., MD Lumbar Spine X-Ray 08/13/17 0000 Signed Impressions: Service Date/Time: July 04:45 - CONCLUSION: No acute disease. Berto Stevens Jr., MD Knee X-Ray 08/13/17 0000 Signed Impressions: Service Date/Time: July 04:57 - CONCLUSION: Total knee prosthesis in good position. Small residual joint effusion. Berto Stevens Jr., MD Knee X-Ray 08/13/17 0000 Signed Impressions: Service Date/Time: July 04:55 - CONCLUSION: Advanced tricompartmental osteoarthritis. No acute abnormality. Berto Stevens Jr., MD Objective Remarks in bed, nad dressing with mild bloody discharge. dressing changed, no erythema bleeding from abdomen from lovenox injection site yesterday am - stopped. nvi Assessment & Plan Ortho Post Op Day #: 3 Problem List: Assessment and Plan s/p R TKA wbat daily dressing changes doppler US RLE - negative fall this am tripping over SCD chord - xrays negative patient bleeding from incision site and lovenox injection site, d/c lovenox and trasition to asa81 discussed d/c home vs snf with patient in detail. declines snf. states she feels she will be safe at home. d/c planning home with [facility] and pt - cleared today after PT rx in chart f/up dr. gilbert 2 weeks Jose Artis Aug 13, 2017 07:54
[2017-08-13] MEDS: FUROSEMIDE 80 MG TAB PO SCH (08:21)
[2017-08-13] MEDS: METOPROLOL SUCCINATE 25 MG EXTENDED RELEASE TAB PO SCH (08:21)
[2017-08-13] MEDS: MULTIVITAMINS/MINERALS THERAPEUTIC TAB PO SCH ×2 (08:22→21:20)
[2017-08-13] MEDS: LISINOPRIL 10 MG TAB PO SCH (08:22)
[2017-08-13] MEDS: FLUoxetine HCL 20 MG CAP PO SCH ×2 (08:22→21:20)
[2017-08-13] MEDS: ASPIRIN 81 MG CHEW TAB PO SCH (08:22)
[2017-08-13] MEDS: DOCUSATE SODIUM 50 MG/SENNA 8.6 MG TAB PO SCH ×2 (08:22→21:21)
[2017-08-13] MEDS: INSULIN ASPART SUPPLEMENTAL SCALE SQ SCH ×4 (08:23→21:20)
[2017-08-13] MEDS: TIMOLOL MALEATE 0.5% OPHT SOLN 5 ML BTL RIGHT EYE SCH ×2 (08:24→21:18)
[2017-08-13] MEDS: BRIMONIDINE TARTRATE 0.2% OPHT SOLN 5 ML BTL RIGHT EYE SCH ×2 (08:24→21:18)
[2017-08-13] MEDS: INSULIN DETEMIR 100 UNITS/ML VIAL SQ SCH ×2 (08:30→21:19)
[2017-08-13] MEDS: PANTOPRAZOLE SOD 40 MG DELAYED RELEASE TAB PO SCH (08:30)
[2017-08-13] MEDS: CHOLECALCIFEROL (VIT D3) 1000 UNIT TAB PO SCH (08:34)
[2017-08-13] MEDS ORDERED: LACTULOSE SYRUP 20 GM/30 ML CUP PO SCH (09:00)
--- NOTE | 2017-08-13 10:12 | HHI.PR ---
Subjective Remarks Follow up for diabetes, hypertension. Patient seen and examined, sitting up in chair with apparent dyspnea. Patient states she took her oxygen off because it was bothering her nose. Monitor at bedside, oxygen saturations are 96% on 4 L nasal cannula. A stat x-ray was ordered. Vitals are stable at the time. It was found the patient has pulmonate vascular condition versus pneumonia. Objective Vitals Vital Signs Date Time Temp Pulse Resp B/P (MAP) Pulse Ox O2 Delivery O2 Flow Rate FiO2 08/13/17 10:11 95 Nasal Cannula 4.00 08/13/17 08:00 98.0 104 16 148/86 (106) 90 08/13/17 06:19 98.4 101 18 122/63 (82) 94 08/13/17 05:19 98.7 107 18 161/77 (105) 97 08/13/17 04:19 98.2 102 18 151/72 (98) 95 08/13/17 03:19 98.2 107 18 162/84 (110) 97 08/13/17 00:25 96 Nasal Cannula 2.00 08/13/17 00:14 98.6 90 17 136/71 (92) 98 08/13/17 00:10 93 08/12/17 20:06 97.8 85 19 149/79 (102) 92 08/12/17 20:05 85 08/12/17 19:54 93 Nasal Cannula 1.00 08/12/17 16:54 84 08/12/17 15:52 97.8 81 17 125/73 (90) 93 08/12/17 13:28 98 Nasal Cannula 1.00 08/12/17 11:54 98.3 96 17 116/54 (74) 95 I/O 08/12/17 08/12/17 08/12/17 08/13/17 08/13/17 08/13/17 07:00 15:00 23:00 07:00 15:00 23:00 Intake Total 0 ml 480 ml 480 ml 360 ml Balance 0 ml 480 ml 480 ml 360 ml Intake Oral 0 ml 480 ml 480 ml 360 ml # Voids 2 2 3 2 # Bowel Movements 0 0 0 0 Result Diagram: 08/13/17 0406 08/13/17 0406 Imaging Last Impressions Pelvis X-Ray 08/13/17 0000 Signed Impressions: Service Date/Time: July 04:53 - CONCLUSION: No acute disease. Berto Stevens Jr., MD Lumbar Spine X-Ray 08/13/17 0000 Signed Impressions: Service Date/Time: July 04:45 - CONCLUSION: No acute disease. Berto Stevens Jr., MD Knee X-Ray 08/13/17 0000 Signed Impressions: Service Date/Time: July 04:57 - CONCLUSION: Total knee prosthesis in good position. Small residual joint effusion. Berto Stevens Jr., MD Chest X-Ray 08/13/17 0000 Signed Impressions: Service Date/Time: July 10:02 - CONCLUSION: Mild perihilar infiltrates consistent with pulmonary vascular congestion or pneumonia. Mild cardiomegaly. Jamar Sesay MD Lower Extremity Ultrasound 08/12/17 0000 Signed Impressions: Service Date/Time: Saturday, August 12, 2017 09:50 - CONCLUSION: No evidence of deep venous thrombosis within the right lower extremity. Jamar Sesay MD Objective Remarks GENERAL: Well-nourished, well-developed obese female patient with apparent shortness of breath. On supplemental O2. SKIN: Warm and dry. HEENT: Normocephalic. Atraumatic. Pupils equal and round. Mucous membranes pink and moist. NECK: Supple. Trachea midline. CARDIOVASCULAR: Regular rate and rhythm. No murmur appreciated. RESPIRATORY: No accessory muscle use. Right posterior lobe with diminished breath sounds. No wheezing or rhonchi. GASTROINTESTINAL: Abdomen soft, non-tender, nondistended. Normoactive bowel sounds x4. MUSCULOSKELETAL: No obvious deformities. Right knee with surgical dressing, CDI. NEUROLOGICAL: Awake and alert. No obvious cranial nerve deficits. Motor grossly within normal limits. Normal speech. PSYCHIATRIC: Appropriate mood and affect; insight and judgment normal. Procedures 08/10/17 right total knee arthroplasty A/P Problem List: (1) Chronic diastolic congestive heart failure ICD Code: I50.32 - Chronic diastolic (congestive) heart failure (2) Primary localized osteoarthrosis, lower leg ICD Code: M17.10 - Unilateral primary osteoarthritis, unspecified knee (3) DM (diabetes mellitus) ICD Code: E11.9 - Type 2 diabetes mellitus without complications Status: Acute (4) Hypertension ICD Code: I10 - Essential (primary) hypertension Status: Acute Assessment and Plan 57-year-old female with history of insulin dependent diabetes, CKD stage III, HTN, diastolic CHF, CAD, hypothyroidism, depression, osteoarthritis, admitted to the hospital for right total knee arthroplasty. Hospitalist consultation was requested for medical management. Osteoarthritis: Status post right total knee arthroplasty. -Management per orthopedic surgery. -Continue pain control, bowel regimen, physical therapy. -Patient with increased right knee/calf pain today, Doppler ultrasound negative for DVT. Chronic diastolic congestive heart failure, mild acute exacerbation -Continue Lasix, lisinopril, metoprolol. -Chest x-ray showing some mild pulmonary vascular congestion. Given additional dose of IV Lasix today. Monitor intake and output. -Monitor for improvement. Continue oxygen. Hospital-acquired pneumonia with apparent inciting dyspnea, tachycardia and hypoxia Patient requiring increase in O2 dependence, now at 4 L nasal cannula. Chest x-ray showing mild perihilar infiltrates consistent with pulmonary vascular congestion or pneumonia. Will diurese gently. Also started on IV antibiotics. Lactic acid ordered, pending. Will give 1 dose of IV steroids, patient diminished in the right lung field. Sputum culture ordered and pending. Mild leukocytosis. Follow CBC in a.m. D-dimer ordered, pending and follow. Rule out PE. Insulin-dependent diabetes mellitus: Glucose has been elevated. -Continue home insulin regimen. -Diabetic diet. -Monitor Accu-Cheks and cover with sliding scale insulin. Hypertension: Chronic, BP well controlled. -Continue patient's metoprolol, amlodipine, lisinopril. -Monitor BP, adjust antihypertensives as needed Chronic kidney disease stage III: chronic, stable -avoid nephrotoxins -Monitor BUN and creatinine. Hypothyroidism: chronic -Continue Synthroid. Depression: Chronic -Continue fluoxetine. Constipation: suspect secondary to opiates. Last BM 08/09. -Continue guillermina-Colace 2 tabs po bid -Constipation protocol meds prn -Monitor for BM DVT prophylaxis: Lovenox. Problem Qualifiers (1) Primary localized osteoarthrosis, lower leg: Qualified Codes: M17.11 - Unilateral primary osteoarthritis, right knee RebaJoannJocymarvin MILLIGAN Aug 13, 2017 10:12
--- NOTE | 2017-08-13 10:50 | RADRPT ---
EXAM DATE/TIME: 08/13/2017 10:02 [facility] COMPARISON: CHEST SINGLE AP, January 24, 2017, 1:50. INDICATIONS : Short of breath. MEDICAL HISTORY : Hypertension. Diabetes mellitus type II. Pancreatitis. Myocardial infarction. CVA. SURGICAL HISTORY : Total knee replacement, right. section. Hysterectomy. ENCOUNTER: Subsequent ACUITY: 4 - 6 days PAIN SCORE: 0/10 LOCATION: Bilateral chest FINDINGS: The heart is mildly prominent. Mild perihilar infiltrates are noted consistent with pulmonary vascula r congestion or pneumonia. CONCLUSION: Mild perihilar infiltrates consistent with pulmonary vascular congestion or pneumonia. Mild cardiomeg moon. Jamar Sesay MD on August 13, 2017 at 10:47 Board Certified Radiologist. This report was verified electronically.
[2017-08-13] MEDS ORDERED: FUROSEMIDE 20 MG/2 ML VIAL IV PUSH ONE (11:30)
[2017-08-13] MEDS ORDERED: Vancomycin Consult Pharmacy 1 EA OTHER SCH (11:30)
[2017-08-13] MEDS: PIPERACIL-TAZO 4.5 GM PREMIX 100 ML IV SCH ×3 (12:44→23:54)
[2017-08-13] MEDS ORDERED: VANCOMYCIN INJ 1,000 MG in SODIUM CHLOR 0.9% 250 ML INJ 250 ML IV ONE (13:00)
[2017-08-13] MEDS: VANCOMYCIN INJ 2,000 MG in SODIUM CHLORID 0.9% 500 ML INJ 500 ML IV SCH (15:12)
[2017-08-13] MEDS ORDERED: ALPRAZolam 0.25 MG TAB PO PRN (15:45)
[2017-08-13] MEDS ORDERED: methylPREDNISolone SOD SUCC 125 MG/2 ML VIAL IV PUSH ONE (15:45)
[2017-08-13] MEDS: GABAPENTIN 300 MG CAP PO SCH (21:20)
[2017-08-14] VITALS (9 sets, daily range): BP systolic 111–142; BP diastolic 67–79; PULSE 76–105; RESP 18–19; TEMP 97.7–99; O2SAT 96–100
[2017-08-14] MEDS: ACETAMINOPHEN/HYDROcodone 325 MG/7.5 MG TAB PO PRN ×3 (06:21→23:22)
[2017-08-14] MEDS: PIPERACIL-TAZO 4.5 GM PREMIX 100 ML IV SCH ×3 (06:21→17:00)
[2017-08-14] MEDS: LEVOTHYROXINE SODIUM 25 MCG TAB PO SCH (06:22)
[2017-08-14 07:01] LABS: AUTOMATED NEUTROPHIL # 9.3 TH/MM3 (1.8-7.7); HEMATOCRIT 30.3 % (35.0-46.0); HEMOGLOBIN 9.9 GM/DL (11.6-15.3); LYMPH % 5.2 % (9.0-44.0); LYMPHOCYTE # 0.5 TH/MM3 (1.0-4.8); MEAN CELL VOLUME 90.4 FL (80.0-100.0); MEAN CORPUSCULAR HEMOGLOBIN 29.6 PG (27.0-34.0); MEAN CORPUSCULAR HGB CONC 32.8 % (32.0-36.0); MEAN PLATELET VOLUME 8.5 FL (7.0-11.0); MONO % 1.5 % (0.0-8.0); MONOCYTE # 0.2 TH/MM3 (0-0.9); NEUT % 93.3 % (16.0-70.0); PLATELET COUNT 240 TH/MM3 (150-450); RED BLOOD COUNT 3.35 MIL/MM3 (4.00-5.30); RED CELL DISTRIBUTION WIDTH 14.5 % (11.6-17.2); WHITE BLOOD COUNT 9.9 TH/MM3 (4.0-11.0)
[2017-08-14 07:33] LABS: BICARBONATE 35.3 MEQ/L (21.0-32.0); CALCIUM 8.5 MG/DL (8.5-10.1); CREATININE 1.12 MG/DL (0.50-1.00)
[2017-08-14] MEDS: VANCOMYCIN INJ 2,000 MG in SODIUM CHLORID 0.9% 500 ML INJ 500 ML IV SCH (08:00)
[2017-08-14] MEDS: INSULIN DETEMIR 100 UNITS/ML VIAL SQ SCH (08:00)
[2017-08-14] MEDS: INSULIN ASPART SUPPLEMENTAL SCALE SQ SCH ×4 (08:00→21:30)
[2017-08-14] MEDS: METOPROLOL SUCCINATE 25 MG EXTENDED RELEASE TAB PO SCH (08:02)
[2017-08-14] MEDS: PANTOPRAZOLE SOD 40 MG DELAYED RELEASE TAB PO SCH (08:02)
[2017-08-14] MEDS: LISINOPRIL 10 MG TAB PO SCH (08:02)
[2017-08-14] MEDS: FLUoxetine HCL 20 MG CAP PO SCH ×2 (08:02→21:30)
[2017-08-14] MEDS: MULTIVITAMINS/MINERALS THERAPEUTIC TAB PO SCH ×2 (08:02→21:30)
[2017-08-14] MEDS: CHOLECALCIFEROL (VIT D3) 1000 UNIT TAB PO SCH (08:02)
[2017-08-14] MEDS: ASPIRIN 81 MG CHEW TAB PO SCH (08:02)
[2017-08-14] MEDS: DOCUSATE SODIUM 50 MG/SENNA 8.6 MG TAB PO SCH ×2 (08:03→21:30)
[2017-08-14] MEDS: FUROSEMIDE 80 MG TAB PO SCH (08:08)
--- NOTE | 2017-08-14 08:14 | PD.ORT.PN ---
Subjective Post Op Day #: 4 Subjective Remarks POD #[address] Gilbert Pt sitting upright in a chair, RN at bedside, O2 cannula on. States she is comfortable and knee pain is minimal. Medical team is working her up for pneumonia. Objective Vitals Vital Signs Date Time Temp Pulse Resp B/P (MAP) Pulse Ox O2 Delivery O2 Flow Rate FiO2 08/14/17 03:19 99.0 100 19 142/72 (95) 96 08/13/17 23:19 98.4 90 18 151/72 (98) 94 08/13/17 21:25 Nasal Cannula 4.00 08/13/17 21:20 Nasal Cannula 4.00 08/13/17 20:19 98.8 66 18 115/55 (75) 99 08/13/17 16:13 99.3 85 18 142/69 (93) 95 08/13/17 12:00 98.2 97 16 118/78 (91) 94 08/13/17 10:11 95 Nasal Cannula 4.00 08/13/17 08:40 91 Nasal Cannula 4.00 I/O 08/13/17 08/13/17 08/13/17 08/14/17 08/14/17 08/14/17 07:00 15:00 23:00 07:00 15:00 23:00 Intake Total 360 ml 480 ml 360 ml Balance 360 ml 480 ml 360 ml Intake Oral 360 ml 480 ml 360 ml # Voids 2 3 3 # Bowel Movements 0 0 1 Result Diagram: 08/14/17 0618 08/14/17 0618 Imaging Last 24 hours Impressions Pelvis X-Ray 08/13/17 0000 Signed Impressions: Service Date/Time: July 04:53 - CONCLUSION: No acute disease. Berto Stevens Jr., MD Lumbar Spine X-Ray 08/13/17 0000 Signed Impressions: Service Date/Time: July 04:45 - CONCLUSION: No acute disease. Berto Stevens Jr., MD Knee X-Ray 08/13/17 0000 Signed Impressions: Service Date/Time: July 04:57 - CONCLUSION: Total knee prosthesis in good position. Small residual joint effusion. Berto Stevens Jr., MD Knee X-Ray 08/13/17 0000 Signed Impressions: Service Date/Time: July 04:55 - CONCLUSION: Advanced tricompartmental osteoarthritis. No acute abnormality. Berto Stevens Jr., MD Objective Remarks in chair, nad dressing clean and dry mild tenderness around knee joint no calf pain, NVI nvi Assessment & Plan Ortho Post Op Day #: 4 Problem List: (1) Primary localized osteoarthrosis, lower leg ICD Codes: M17.10 - Unilateral primary osteoarthritis, unspecified knee Qualifiers: Qualified Codes: M17.11 - Unilateral primary osteoarthritis, right knee (2) Hypertension ICD Codes: I10 - Essential (primary) hypertension Status: Acute (3) DM (diabetes mellitus) ICD Codes: E11.9 - Type 2 diabetes mellitus without complications Status: Acute (4) Chronic diastolic congestive heart failure ICD Codes: I50.32 - Chronic diastolic (congestive) heart failure Assessment and Plan s/p R TKA wbat daily dressing changes doppler US RLE - negative fall this am tripping over SCD chord - xrays negative patient bleeding from incision site and lovenox injection site, d/c lovenox and trasition to asa81 once daily discussed d/c home vs snf with patient in detail. declines snf. states she feels she will be safe at home. d/c planning home with [facility] and pt rx in chart Orthopedic clear for d/c when medically cleared. Awaiting recommendations in regards to transition to home abx treatment f/up dr. gilbert 2 weeks Shira Hawkins Aug 14, 2017 08:14
[2017-08-14] MEDS: BRIMONIDINE TARTRATE 0.2% OPHT SOLN 5 ML BTL RIGHT EYE SCH ×2 (09:00→21:28)
[2017-08-14] MEDS: TIMOLOL MALEATE 0.5% OPHT SOLN 5 ML BTL RIGHT EYE SCH ×2 (09:00→21:28)
[2017-08-14] MEDS ORDERED: SODIUM CHLOR 0.9% 1000 ML INJ 1,000 ML IV SCH (14:15)
--- NOTE | 2017-08-14 17:20 | HHI.PR ---
Subjective Remarks Late entry, patient seen at 10 AM Follow-up on patient status post right total knee arthroplasty. Patient seen and examined. s/p fall earlier today after tripping on cords, bleeding from incision site. Lovenox discontinued and changed to po ASA per Ortho. Patient complaining of right sided flank pain, nonradicular, tender to the touch. She denies any fever or chills but she denies any shortness of breath or chest pain. She denies any nausea, vomiting or abdominal pain. Patient continues to desaturate off of oxygen. She does not use oxygen at home. Objective Vitals Vital Signs Date Time Temp Pulse Resp B/P (MAP) Pulse Ox O2 Delivery O2 Flow Rate FiO2 08/14/17 16:00 98.4 94 18 135/79 (97) 100 08/14/17 12:00 97.7 76 18 111/69 (83) 97 08/14/17 10:32 100 Nasal Cannula 4.00 08/14/17 08:00 98.1 97 18 124/69 (87) 100 08/14/17 07:35 Nasal Cannula 4.00 08/14/17 03:19 99.0 100 19 142/72 (95) 96 08/13/17 23:19 98.4 90 18 151/72 (98) 94 08/13/17 21:25 Nasal Cannula 4.00 08/13/17 21:20 Nasal Cannula 4.00 08/13/17 20:19 98.8 66 18 115/55 (75) 99 I/O 08/13/17 08/13/17 08/13/17 08/14/17 08/14/17 08/14/17 07:00 15:00 23:00 07:00 15:00 23:00 Intake Total 360 ml 480 ml 360 ml Balance 360 ml 480 ml 360 ml Intake Oral 360 ml 480 ml 360 ml # Voids 2 3 3 # Bowel Movements 0 0 1 Result Diagram: 08/14/1718 08/14/1718 Imaging Last Impressions Pelvis X-Ray 08/13/17 0000 Signed Impressions: Service Date/Time: July 04:53 - CONCLUSION: No acute disease. Berto Stevens Jr., MD Lumbar Spine X-Ray 08/13/17 0000 Signed Impressions: Service Date/Time: July 04:45 - CONCLUSION: No acute disease. Berto Stevens Jr., MD Knee X-Ray 08/13/17 0000 Signed Impressions: Service Date/Time: July 04:57 - CONCLUSION: Total knee prosthesis in good position. Small residual joint effusion. Berto Stevens Jr., MD Chest X-Ray 08/13/17 0000 Signed Impressions: Service Date/Time: July 10:02 - CONCLUSION: Mild perihilar infiltrates consistent with pulmonary vascular congestion or pneumonia. Mild cardiomegaly. Jamar Sesay MD Lower Extremity Ultrasound 08/12/17 0000 Signed Impressions: Service Date/Time: Saturday, August 12, 2017 09:50 - CONCLUSION: No evidence of deep venous thrombosis within the right lower extremity. Jamar Sesay MD Objective Remarks GENERAL: Well-nourished, well-developed obese female patient, INAD. Awake and alert. On supplemental O2. SKIN: Warm and dry. HEENT: Normocephalic. Atraumatic. Pupils equal and round. Mucous membranes pink and moist. NECK: Supple. Trachea midline. CARDIOVASCULAR: Regular rate and rhythm. No murmur appreciated. RESPIRATORY: No accessory muscle use. Right posterior lobe with diminished breath sounds. No wheezing or rhonchi. GASTROINTESTINAL: Abdomen soft, non-tender, nondistended. Normoactive bowel sounds x4. MUSCULOSKELETAL: No obvious deformities. Right knee with surgical dressing, CDI. (+)Tenderness to palpation over right upper ribs. NEUROLOGICAL: Awake and alert. No obvious cranial nerve deficits. Motor grossly within normal limits. Normal speech. PSYCHIATRIC: Appropriate mood and affect; insight and judgment normal. Procedures 08/10/17 right total knee arthroplasty Medications and IVs Current Medications Medications (Trade) Dose Ordered Sig/Crys Route Start Time Stop Time Status Last Admin (Norvasc) 10 mg DAILY PO 08/10/17 09:00 08/14/17 08:02 (Vitamin D3) 1,000 units DAILY PO 08/11/17 09:00 08/14/17 08:02 (PROzac) 20 mg BID PO 08/10/17 09:00 08/14/17 08:02 (Lasix) 80 mg DAILY PO 08/10/17 09:00 08/14/17 08:08 (Neurontin) 300 mg HS PO 08/10/17 21:00 08/13/17 21:20 (Levemir Inj) 55 units HS SQ 08/10/17 21:00 08/13/17 21:19 (Synthroid) 25 mcg DAILY@0600 PO 08/11/17 06:00 08/14/17 06:22 (Prinivil) 10 mg DAILY PO 08/10/17 09:00 08/14/17 08:02 (Toprol Xl) 25 mg DAILY PO 08/10/17 09:00 08/14/17 08:02 (Protonix) 40 mg DAILY PO 08/11/17 09:00 08/14/17 08:02 (Morphine Inj) 3 mg Q3H PRN IV PUSH 08/10/17 07:00 08/12/17 07:38 ([place] 7.5-325 Mg) 1 tab Q4H PRN PO 08/10/17 07:00 08/14/17 06:21 ([place] 7.5-325 Mg) 2 tab Q4H PRN PO 08/10/17 07:00 08/13/17 03:43 (Theragran M Tab) 1 tab BID PO 08/11/17 21:00 10/10/17 20:59 08/14/17 08:02 (Zofran Inj) 4 mg Q6H PRN IVP 08/10/17 07:00 08/12/17 22:48 (Ambien) 5 mg HS PRN PO 08/10/17 07:00 (Dulcolax Supp) 10 mg DAILY PRN RECTAL 08/10/17 07:00 (Benadryl Inj) 25 mg Q6H PRN IV PUSH 08/10/17 07:00 (Alphagan 0.2% Opth Soln) 1 drop Q12HR RIGHT EYE 08/10/17 09:00 08/14/17 09:00 (Timoptic 0.5% Opth Soln) 1 drop Q12HR RIGHT EYE 08/10/17 09:00 08/14/17 09:00 (D50w (Vial) Inj) 50 ml UNSCH PRN IV PUSH 08/10/17 15:30 (Glucagon Inj) 1 mg UNSCH PRN OTHER 08/10/17 15:30 (NovoLOG SUPPLEMENTAL SCALE) 1 ACHS SLIDING SCALE SQ 08/10/17 17:00 08/14/17 12:00 (Levemir Inj) 75 units DAILY@0800 SQ 08/12/17 08:00 08/14/17 08:00 (Milk Of Magnesia Liq) 30 ml BID PRN PO 08/11/17 23:30 08/12/17 21:04 (Cepacol Extra Kesha (Sugar Free)) 1 lozenge Q2HR PRN BUCCAL 08/12/17 09:00 (Stephanie-Colace) 2 tab BID PO 08/12/17 21:00 08/14/17 08:03 (Aspirin Chew) 81 mg DAILY PO 08/12/17 13:00 08/14/17 08:02 (Lactulose Liq) 30 ml DAILY PRN PO 08/12/17 18:30 08/12/17 18:56 Piperacillin Sod/ Tazobactam Sod 100 ml @ 200 mls/hr Q6H IV 08/13/17 12:00 08/14/17 12:00 Pharmacy Profile Note 0 ml @ 0 mls/hr UNSCH OTHER 08/13/17 11:30 Vancomycin HCl 2000 mg/Sodium Chloride 520 ml @ 250 mls/hr Q18H IV 08/13/17 14:00 08/14/17 08:00 Miscellaneous Information SPECIFIC LAB TO BE DRAWN:VANCOMYCIN TROUGH DATE TO... ONCE ONCE .XX 08/15/17 19:45 08/15/17 19:46 (Xanax) 0.25 mg Q6H PRN PO 08/13/17 15:45 08/13/17 21:20 Sodium Chloride 1,000 ml @ 50 mls/hr Q20H IV 08/14/17 14:15 08/14/17 14:15 A/P Problem List: (1) Chronic diastolic congestive heart failure ICD Code: I50.32 - Chronic diastolic (congestive) heart failure (2) Primary localized osteoarthrosis, lower leg ICD Code: M17.10 - Unilateral primary osteoarthritis, unspecified knee (3) DM (diabetes mellitus) ICD Code: E11.9 - Type 2 diabetes mellitus without complications Status: Acute (4) Hypertension ICD Code: I10 - Essential (primary) hypertension Status: Acute Assessment and Plan 57-year-old female with history of insulin dependent diabetes, CKD stage III, HTN, diastolic CHF, CAD, hypothyroidism, depression, osteoarthritis, admitted to the hospital for right total knee arthroplasty. Hospitalist consultation was requested for medical management. Osteoarthritis: Status post right total knee arthroplasty. -Management per orthopedic surgery. s/p fall this am after tripping over cord. Patient bleeding from incision site and Lovenox injection site. Lovenox discontinued and transitioned to aspirin 81 mg daily -Continue pain control, bowel regimen, physical therapy. Chronic diastolic congestive heart failure, mild acute exacerbation -Continue Lasix, lisinopril, metoprolol. -Chest x-ray showing some mild pulmonary vascular congestion. Given additional dose of IV Lasix. Monitor intake and output. -BNP 61 -Monitor for improvement. Continue oxygen. -home oxygen walk test ordered Hospital-acquired pneumonia with apparent inciting dyspnea, tachycardia and hypoxia Patient requiring increase in O2 dependence, now at 4 L nasal cannula. Chest x-ray showing mild perihilar infiltrates consistent with pulmonary vascular congestion or pneumonia. Given gentle IV diuresis. Also started on IV Zosyn and Vancomycin. Discontinue, change to po Levaquin. sputum culture shows heavy growth of normal respiratory senthil Lactic acid 1.2. D-dimer elevated. Obtain CTA to r/o PE. Gentle IVF given impaired kidney function and BNP 61. Insulin-dependent diabetes mellitus: Glucose has been elevated. -BS 333 this am. Increase night time Levemir to 60u and continue Levemir 75u in am. -Diabetic diet. -Monitor Accu-Cheks and cover with sliding scale insulin. Hypertension: Chronic, BP well controlled. -Continue patient's metoprolol, amlodipine, lisinopril. -Monitor BP, adjust antihypertensives as needed Chronic kidney disease stage III: chronic, stable -avoid nephrotoxins -Monitor BUN and creatinine. Hypothyroidism: chronic -Continue Synthroid. Depression: Chronic -Continue fluoxetine. Constipation: suspect secondary to opiates. -(+)BM -Continue stephanie-Colace 2 tabs po bid -Constipation protocol meds prn -Monitor for BM DVT prophylaxis: Lovenox discontinued by Ortho, changed to ASA 81mg daily Discharge Planning Pending improvement in clinical course Problem Qualifiers (1) Primary localized osteoarthrosis, lower leg: Qualified Codes: M17.11 - Unilateral primary osteoarthritis, right knee Sandra Ruiz Aug 14, 2017 17:20
[2017-08-14] MEDS ORDERED: IOHEXOL 350 MG/ML 10 ML VIAL (for RAD DIAG) IVCONTRAST ONE (18:03)
--- NOTE | 2017-08-14 18:24 | RADRPT ---
EXAM DATE/TIME: 08/14/2017 18:00 [facility] COMPARISON: CT PULMONARY ANGIOGRAM, January 24, 2017, 4:16. INDICATIONS : Short of breath with chest pains. IV CONTRAST: 75 cc Omnipaque 350 (iohexol) IV RADIATION DOSE: 10.55 CTDIvol (mGy) MEDICAL HISTORY : Cardiovascular disease. Hypertension. Diabetes mellitus type 2. SURGICAL HISTORY : None. ENCOUNTER: Initial ACUITY: 1 day PAIN SCALE: 8/10 LOCATION: Bilateral chest TECHNIQUE: Volumetric scanning of the chest was performed using a pulmonary embolism protocol MIP images were re constructed. Using automated exposure control and adjustment of the mA and/or kV according to patien t size, radiation dose was kept as low as reasonably achievable to obtain optimal diagnostic quality images. DICOM format image data is available electronically for review and comparison. Follow-up recommendations for detected pulmonary nodules are based at a minimum on nodule size and pa tient risk factors according to Fleischner Society Guidelines. FINDINGS: PULMONARY ARTERIES: No filling defects are seen in the pulmonary arteries through the segmental level. LUNGS: There is no consolidation or pneumothorax . No concerning pulmonary nodule is visualized. PLEURAE: There is no pleural thickening or pleural effusion. MEDIASTINUM: There is good visualization of the great vessels of the middle mediastinum. No evidence of mediastin al or hilar adenopathy/mass. MUSCULOSKELETAL: Within normal limits for patient age. MISCELLANEOUS: The visualized upper abdominal organs demonstrate no acute abnormality. CONCLUSION: No pulmonary embolus or other acute cardiopulmonary disease. Enzo Oropeza MD on August 14, 2017 at 18:21 Board Certified Radiologist. This report was verified electronically.
[2017-08-14] MEDS ORDERED: INSULIN DETEMIR 100 UNITS/ML VIAL SQ SCH (21:00)
[2017-08-14] MEDS: GABAPENTIN 300 MG CAP PO SCH (21:28)
[2017-08-15 03:55] VITALS: PULSE 72
[2017-08-15] MEDS: ACETAMINOPHEN/HYDROcodone 325 MG/7.5 MG TAB PO PRN (04:15)
[2017-08-15 04:17] VITALS: BP 133/63; PULSE 82; RESP 19; TEMP 97.2; O2SAT 98
[2017-08-15] MEDS: LEVOTHYROXINE SODIUM 25 MCG TAB PO SCH (06:23)
[2017-08-15 08:00] VITALS: BP 114/59; PULSE 64; RESP 18; TEMP 98.1; O2SAT 97
[2017-08-15] MEDS: INSULIN ASPART SUPPLEMENTAL SCALE SQ SCH ×2 (08:00→12:00)
[2017-08-15] MEDS: LISINOPRIL 10 MG TAB PO SCH (08:21)
[2017-08-15] MEDS: ASPIRIN 81 MG CHEW TAB PO SCH (08:21)
[2017-08-15] MEDS: METOPROLOL SUCCINATE 25 MG EXTENDED RELEASE TAB PO SCH (08:22)
[2017-08-15] MEDS: FLUoxetine HCL 20 MG CAP PO SCH (08:22)
[2017-08-15] MEDS: DOCUSATE SODIUM 50 MG/SENNA 8.6 MG TAB PO SCH (08:22)
[2017-08-15] MEDS: MULTIVITAMINS/MINERALS THERAPEUTIC TAB PO SCH (08:22)
[2017-08-15] MEDS: CHOLECALCIFEROL (VIT D3) 1000 UNIT TAB PO SCH (08:22)
[2017-08-15] MEDS: PANTOPRAZOLE SOD 40 MG DELAYED RELEASE TAB PO SCH (08:22)
[2017-08-15] MEDS ORDERED: LEVOFLOXACIN 750 MG TAB PO SCH (09:00)
--- NOTE | 2017-08-15 09:12 | PD.ORT.PN ---
Subjective Subjective Remarks Appears depressed. Doing okay. Appreciate medical notes Objective Vitals Vital Signs Date Time Temp Pulse Resp B/P (MAP) Pulse Ox O2 Delivery O2 Flow Rate FiO2 08/15/17 04:17 97.2 82 19 133/63 (86) 98 08/15/17 03:55 72 08/14/17 23:30 98.1 84 18 138/76 (96) 96 08/14/17 21:32 Nasal Cannula 4.00 08/14/17 20:11 99 Nasal Cannula 4.00 08/14/17 20:09 98.5 92 19 137/67 (90) 98 08/14/17 20:00 105 08/14/17 16:00 98.4 94 18 135/79 (97) 100 08/14/17 12:00 97.7 76 18 111/69 (83) 97 08/14/17 10:32 100 Nasal Cannula 4.00 I/O 08/14/17 08/14/17 08/14/17 08/15/17 08/15/17 08/15/17 07:00 15:00 23:00 07:00 15:00 23:00 Intake Total 360 ml 360 ml 360 ml Balance 360 ml 360 ml 360 ml Intake Oral 360 ml 360 ml 360 ml # Voids 3 3 2 # Bowel Movements 1 0 0 Result Diagram: 08/14/1718 08/14/17 0618 Imaging Last 24 hours Impressions Pelvis X-Ray 08/13/17 0000 Signed Impressions: Service Date/Time: July 04:53 - CONCLUSION: No acute disease. Berto Stevens Jr., MD Lumbar Spine X-Ray 08/13/17 0000 Signed Impressions: Service Date/Time: July 04:45 - CONCLUSION: No acute disease. Berto Stevens Jr., MD Knee X-Ray 08/13/17 0000 Signed Impressions: Service Date/Time: July 04:57 - CONCLUSION: Total knee prosthesis in good position. Small residual joint effusion. Berto Stevens Jr., MD Knee X-Ray 08/13/17 0000 Signed Impressions: Service Date/Time: July 04:55 - CONCLUSION: Advanced tricompartmental osteoarthritis. No acute abnormality. Berto Stevens Jr., MD Objective Remarks Lying in bed. Dressing right knee dry. Mild swelling. Mild to moderate ecchymosis. No calf tenderness. Mild swelling. Negative Homans sign. Sensation distally normal Assessment & Plan Problem List: (1) Primary localized osteoarthrosis, lower leg ICD Codes: M17.10 - Unilateral primary osteoarthritis, unspecified knee Qualifiers: Qualified Codes: M17.11 - Unilateral primary osteoarthritis, right knee (2) Hypertension ICD Codes: I10 - Essential (primary) hypertension Status: Acute (3) DM (diabetes mellitus) ICD Codes: E11.9 - Type 2 diabetes mellitus without complications Status: Acute (4) Chronic diastolic congestive heart failure ICD Codes: I50.32 - Chronic diastolic (congestive) heart failure Assessment and Plan Right TKA: POD #5 wbat daily dressing changes Fell tripping over SCD chord - xrays negative Lovenox DC'd, aspirin 81 mg twice a day discussed d/c home vs snf with patient in detail. declines snf. states she feels she will be safe at home. Plan discharge to home today, if medically clear rx in chart f/up dr. gilbert 2 weeks Orthopedically stable Oniel Sierra MD Aug 15, 2017 09:12
[2017-08-15 12:00] VITALS: BP 118/67; PULSE 73; RESP 18; TEMP 97.9; O2SAT 96
[2017-08-15] MEDS: INSULIN DETEMIR 100 UNITS/ML VIAL SQ SCH (12:30)
[2017-08-15 13:37] VITALS: O2SAT 96
--- NOTE | 2017-08-15 14:12 | HHI.PR ---
Subjective Remarks 08-14 Follow-up on patient status post right total knee arthroplasty. Patient seen and examined. s/p fall earlier today after tripping on cords, bleeding from incision site. Lovenox discontinued and changed to po ASA per Ortho. Patient complaining of right sided flank pain, nonradicular, tender to the touch. She denies any fever or chills but she denies any shortness of breath or chest pain. She denies any nausea, vomiting or abdominal pain. Patient continues to desaturate off of oxygen. She does not use oxygen at home. 08-15 WANTS TO GO HOME TODAY STATES HAS HHC AND EQUIPMENT WILL DC TO HOME PASSED WALK TEST-NO NEED FOR OXYGEN Wants to go home We will cleared medically Objective Vitals Vital Signs Date Time Temp Pulse Resp B/P (MAP) Pulse Ox O2 Delivery O2 Flow Rate FiO2 08/15/17 13:37 96 08/15/17 12:00 97.9 73 18 118/67 (84) 96 08/15/17 08:00 98.1 64 18 114/59 (77) 97 08/15/17 04:17 97.2 82 19 133/63 (86) 98 08/15/17 03:55 72 08/14/17 23:30 98.1 84 18 138/76 (96) 96 08/14/17 21:32 Nasal Cannula 4.00 08/14/17 20:11 99 Nasal Cannula 4.00 08/14/17 20:09 98.5 92 19 137/67 (90) 98 08/14/17 20:00 105 08/14/17 16:00 98.4 94 18 135/79 (97) 100 I/O 08/14/17 08/14/17 08/14/17 08/15/17 08/15/17 08/15/17 06:59 14:59 22:59 06:59 14:59 22:59 Intake Total 360 ml 360 ml 360 ml Balance 360 ml 360 ml 360 ml Intake Oral 360 ml 360 ml 360 ml # Voids 3 3 2 # Bowel Movements 1 0 0 Result Diagram: 08/14/1718 08/14/17617 Other Results Laboratory Tests Test 08/13/17 04:06 08/14/17 00:15 08/14/17 00:40 08/14/17 06:18 White Blood Count 11.2 TH/MM3 9.9 TH/MM3 Red Blood Count 3.62 MIL/MM3 3.35 MIL/MM3 Hemoglobin 10.6 GM/DL 9.9 GM/DL Hematocrit 32.5 % 30.3 % Mean Corpuscular Volume 89.8 FL 90.4 FL Mean Corpuscular Hemoglobin 29.1 PG 29.6 PG Mean Corpuscular Hemoglobin Concent 32.5 % 32.8 % Red Cell Distribution Width 14.6 % 14.5 % Platelet Count 226 TH/MM3 240 TH/MM3 Mean Platelet Volume 8.6 FL 8.5 FL Blood Urea Nitrogen 20 MG/DL 16 MG/DL Creatinine 1.12 MG/DL 1.12 MG/DL Random Glucose 183 MG/DL 250 MG/DL Calcium Level 8.4 MG/DL 8.5 MG/DL Sodium Level 139 MEQ/L 140 MEQ/L Potassium Level 3.6 MEQ/L 4.1 MEQ/L Chloride Level 100 MEQ/L 98 MEQ/L Carbon Dioxide Level 31.6 MEQ/L 35.3 MEQ/L Anion Gap 7 MEQ/L 7 MEQ/L Estimat Glomerular Filtration Rate 60 ML/MIN 60 ML/MIN Lactic Acid Level 1.2 mmol/L D-Dimer Quantitative (PE/DVT) 2.37 MG/L FEU Neutrophils (%) (Auto) 93.3 % Lymphocytes (%) (Auto) 5.2 % Monocytes (%) (Auto) 1.5 % Eosinophils (%) (Auto) 0.0 % Basophils (%) (Auto) 0.0 % Neutrophils # (Auto) 9.3 TH/MM3 Lymphocytes # (Auto) 0.5 TH/MM3 Monocytes # (Auto) 0.2 TH/MM3 Eosinophils # (Auto) 0.0 TH/MM3 Basophils # (Auto) 0.0 TH/MM3 CBC Comment DIFF FINAL Differential Comment B-Type Natriuretic Peptide 61 PG/ML Imaging Last Impressions CT Angiography 08/14/17 0000 Signed Impressions: Service Date/Time: Monday, August 14, 2017 18:00 - CONCLUSION: No pulmonary embolus or other acute cardiopulmonary disease. Enzo Oropeza MD Pelvis X-Ray 08/13/17 0000 Signed Impressions: Service Date/Time: July 04:53 - CONCLUSION: No acute disease. Berto Stevens Jr., MD Lumbar Spine X-Ray 08/13/17 0000 Signed Impressions: Service Date/Time: July 04:45 - CONCLUSION: No acute disease. Berto Stevens Jr., MD Knee X-Ray 08/13/17 0000 Signed Impressions: Service Date/Time: July 04:57 - CONCLUSION: Total knee prosthesis in good position. Small residual joint effusion. Berto Stevens Jr., MD Chest X-Ray 08/13/17 0000 Signed Impressions: Service Date/Time: July 10:02 - CONCLUSION: Mild perihilar infiltrates consistent with pulmonary vascular congestion or pneumonia. Mild cardiomegaly. Jamar Sesay MD Lower Extremity Ultrasound 08/12/17 0000 Signed Impressions: Service Date/Time: Saturday, August 12, 2017 09:50 - CONCLUSION: No evidence of deep venous thrombosis within the right lower extremity. Jamar Sesay MD Objective Remarks GENERAL: Awake alert and oriented 3 talkative and cooperative appears to be stated age SKIN: Warm and dry. HEAD: Atraumatic. Normocephalic. EYES: Pupils equal and round. No scleral icterus. No injection or drainage. Extraocular muscles intact ENT: No nasal bleeding or discharge. Mucous membranes pink and moist. Tongue is midline NECK: Trachea midline. No JVD. Supple CARDIOVASCULAR: Regular rate and rhythm. S1-S2 no S3-S4 RESPIRATORY: No accessory muscle use. Clear to auscultation. Breath sounds equal bilaterally. Decreased breath sounds bilaterally GASTROINTESTINAL: Abdomen soft, non-tender, nondistended. Hepatic and splenic margins not palpable. MUSCULOSKELETAL: Extremities without clubbing, cyanosis, or edema. No obvious deformities. Some edema bilateral lower extremities right worse than left NEUROLOGICAL: Awake and alert. No obvious cranial nerve deficits. Motor grossly within normal limits. 4 out of 5 muscle strength in the arms and legs. Normal speech. PSYCHIATRIC: Appropriate mood and affect; insight and judgment normal. Procedures 08/10/17 right total knee arthroplasty Medications and IVs Current Medications Lactated Ringer's 1,000 ml @ 30 mls/hr Q24H PRN IV SEE LABEL COMMENTS Last administered on 08/10/17at 06:45; Start 08/10/17 at 06:30; Stop 08/11/17 at 23:25 ; Status DC Sodium Chloride 500 ml @ 30 mls/hr [id number] PRN IV SEE LABEL COMMENTS; Start 05/18 at 06:30; Stop 08/11/17 at 23:25; Status DC Metoprolol Tartrate (Lopressor) 25 mg [employer]GSHEAD [employer]ERK PRN PO SEE LABEL COMMENTS; Start 08/10/17 at 06:30; Stop 08/11/17 at 23:25; Status DC Povidone Iodine (Betadine 5% Antisepsis Kit) 1 applic [employer]GS[employer]ERK PRN EACH NARE SEE LABEL COMMENTS Last administered on 08/10/17at 07:00; Start 08/10/17 at 06:30 ; Stop 08/13/17 at 06:29; Status DC Chlorhexidine Gluconate (Chlorhexidine 2% Cloth) 3 pack [employer]ERK PRN TOPICAL SEE LABEL COMMENTS Last administered on 08/10/17at 06:30; Start 08/10/17 at 06:30 ; Stop 08/11/17 at 23:25; Status DC Povidone Iodine (Betadine 7.5% Scrub) 1 applic ONCE TOPICAL ; Start 08/10/17 at 06:45; Stop 08/11/17 at 23:25; Status DC Chlorhexidine Gluconate (Hibiclens 4% Top Soln) 1 applic ONCE TOPICAL ; Start at 06:45; Stop 08/11/17 at 23:25; Status DC Cefazolin Sodium/ Dextrose 50 ml @ 100 mls/hr [employer]ERK IV Last administered on 08/10/17at 08:04; Start 08/10/17 at 06:45; Stop 08/11/17 at 06:44; Status DC Vancomycin HCl 1000 mg/Sodium Chloride 250 ml @ 250 mls/hr [employer]ERK IV Last administered on 08/10/17at 07:40; Start 08/10/17 at 06:45; Stop 08/11/17 at 06:44 ; Status DC Ropivacaine 24.63 ml/Ketorolac Tromethamine 30 mg/Epinephrine HCl 0.5 mg/ Clonidine 80 mcg/ Sodium Chloride 100 ml @ 200 mls/hr ONCE P-ARTICULR Last administered on 08/10/17at 10:42; Start 08/10/17 at 08:30; Stop 08/10/17 at 14:30 ; Status DC Tranexamic Acid 3000 mg/Sodium Chloride 130 ml @ 260 mls/hr ONCE P-ARTICULR Last administered on 08/10/17at 10:34; Start 08/10/17 at 08:30; Stop 08/10/17 at 14:30; Status DC Dexamethasone Sodium Phosphate (Decadron Inj) 10 mg [employer]GSHEAD [employer] CLERK IV Last administered on 08/10/17 07:09; Start 08/10/17 at 06:45; Stop 08/11/17 at 06:44 ; Status DC Amlodipine Besylate (Norvasc) 10 mg DAILY PO Last administered on 08/15/17 08: 21; Start 08/10/17 at 09:00 Cholecalciferol (Vitamin D3) 1,000 units DAILY PO Last administered on 08:22; Start 08/11/17 at 09:00 Fluoxetine HCl (PROzac) 20 mg BID PO Last administered on 08/15/17 08:22; Start 08/10/17 at 09:00 Furosemide (Lasix) 80 mg DAILY PO Last administered on 08/14/17at 08:08; Start 08/10/17 at 09:00 Gabapentin (Neurontin) 300 mg HS PO Last administered on 08/14/17at 21:28; Start 08/10/17 at 21:00 Insulin Detemir (Levemir Inj) 55 units HS SQ Last administered on 08/13/17at 21: 19; Start 08/10/17 at 21:00; Stop 08/14/17 at 17:12; Status DC Insulin Detemir (Levemir Inj) 75 units AC BREAKFAST SQ Last administered on at 06:45; Start 08/10/17 at 07:15; Stop 08/11/17 at 23:08; Status DC Levothyroxine Sodium (Synthroid) 25 mcg DAILY@0600 PO Last administered on 08/15at 06:23; Start 08/11/17 at 06:00 Lisinopril (Prinivil) 10 mg DAILY PO Last administered on 08/15/17at 08:21; Start 08/10/17 at 09:00 Metoprolol Succinate (Toprol Xl) 25 mg DAILY PO Last administered on 08/15/17at 08:22; Start 08/10/17 at 09:00 Pantoprazole Sodium (Protonix) 40 mg DAILY PO Last administered on 08/15/17at 08 :22; Start 08/11/17 at 09:00 Non-Formulary Medication 1 drop Q12HR RIGHT EYE ; Start 08/10/17 at 09:00; Status UNV Sodium Chloride 1,000 ml @ 100 mls/hr Q10H IV Last administered on 08/11/17at 05:18; Start 08/10/17 at 10:00; Stop 08/11/17 at 23:26; Status DC Cefazolin Sodium/ Dextrose 50 ml @ 100 mls/hr Q6H IV Last administered on 08/11at 00:59; Start 08/10/17 at 12:00; Stop 08/11/17 at 00:29; Status DC Miscellaneous Information (Post-op Orders (for Pharmacy)) STAT ONCE XX ; Start 08/10/17 at 07:00; Stop 08/10/17 at 12:18; Status DC Enoxaparin Sodium (Lovenox Inj) 40 mg Q24H SQ Last administered on 08/11/17at 10 :22; Start 08/11/17 at 10:00; Stop 08/12/17 at 12:39; Status DC Morphine Sulfate (Morphine Inj) 3 mg Q3H PRN IV PUSH Pain >7 when off WOOD POLE TREATER Last administered on 08/12/17at 07:38; Start 08/10/17 at 07:00 Acetaminophen/ Hydrocodone Bitart (Sunol 7.5-325 Mg) 1 tab Q4H PRN PO PAIN LESS THAN 5 ON SCALE Last administered on 08/14/17at 16:00; Start 08/10/17 at 07: 00 Acetaminophen/ Hydrocodone Bitart (Sunol 7.5-325 Mg) 2 tab Q4H PRN PO PAIN SCALE 5 TO 10 Last administered on 08/15/17at 04:15; Start 08/10/17 at 07:00 Multivitamins/ Minerals Therapeutic (Theragran M Tab) 1 tab BID PO Last administered on 08/15/17at 08:22; Start 08/11/17 at 21:00; Stop 10/10/17 at 20:59 Ondansetron HCl (Zofran Inj) 4 mg Q6H PRN IVP NAUSEA OR VOMITING Last administered on 08/12/17at 22:48; Start 08/10/17 at 07:00 Docusate Sodium (Colace) 100 mg BID PO Last administered on 08/12/17at 08:20; Start 08/11/17 at 21:00; Stop 08/12/17 at 09:04; Status DC Zolpidem Tartrate (Ambien) 5 mg HS PRN PO SLEEP; Start 08/10/17 at 07:00 Bisacodyl (Dulcolax Supp) 10 mg DAILY PRN RECTAL CONSTIPATION; Start 08/10/17 at 07:00 Diphenhydramine HCl (Benadryl Inj) 25 mg Q6H PRN IV PUSH ITCHING; Start at 07:00 Vancomycin/Sodium Chloride 200 ml @ As Directed STK-MED ONCE IV ; Start at 07:11; Stop 08/10/17 at 07:12; Status DC Brimonidine Tartrate (Alphagan 0.2% Opth Soln) 1 drop Q12HR RIGHT EYE Last administered on 08/14/17at 21:28; Start 08/10/17 at 09:00 Timolol Maleate (Timoptic 0.5% Opth Soln) 1 drop Q12HR RIGHT EYE Last administered on 08/14/17at 21:28; Start 08/10/17 at 09:00 Gentamicin Sulfate (Gentamicin Inj) 240 mg STK-MED ONCE .ROUTE Last administered on 08/10/17at 09:11; Start 08/10/17 at 07:21; Stop 08/10/17 at 07:22 ; Status DC Fentanyl Citrate (fentaNYL INJ) 100 mcg STK-MED ONCE .ROUTE ; Start 08/10/17 at 07:38; Stop 08/10/17 at 07:39; Status DC Midazolam HCl (Versed Inj) 4 mg STK-MED ONCE .ROUTE ; Start 08/10/17 at 07:38; Stop 08/10/17 at 07:39; Status DC Bupivacaine Liposome (Exparel Pf 1.3% Inj) 20 ml STK-MED ONCE .ROUTE ; Start 05/18 at 07:38; Stop 08/10/17 at 07:39; Status DC Albuterol Sulfate (*ALBUTEROL NEB PERIprocedure ONLY) 2.5 mg STK-MED ONCE NEB Last administered on 08/10/17at 10:46; Start 08/10/17 at 10:46; Stop 08/10/17 at 10:47; Status DC Fentanyl Citrate (fentaNYL INJ) 200 mcg STK-MED ONCE .ROUTE ; Start 08/10/17 at 10:52; Stop 08/10/17 at 10:53; Status DC Meperidine HCl (*DEMEROL INJ PERIprocedural ONLY) 25 mg STK-MED ONCE .ROUTE Last administered on 08/10/17at 11:38; Start 08/10/17 at 11:38; Stop 08/10/17 at 11:39; Status DC Miscellaneous Information ALL NURSING DEPARTME... UNSCH PRN .XX SEE LABEL COMMENTS; Start 08/10/17 at 12:15; Stop 08/11/17 at 12:14; Status DC Morphine Sulfate (*morphine INJ PERIprocedure ONLY) 4 mg STK-MED ONCE .ROUTE Last administered on 08/10/17at 12:59; Start 08/10/17 at 12:59; Stop 08/10/17 at 13:00; Status DC Dextrose (D50w (Vial) Inj) 50 ml UNSCH PRN IV PUSH HYPOGLYCEMIA-SEE COMMENTS; Start 08/10/17 at 15:30 Glucagon (Glucagon Inj) 1 mg UNSCH PRN OTHER HYPOGLYCEMIA-SEE COMMENTS; Start 08/10/17 at 15:30 Insulin Aspart (NovoLOG SUPPLEMENTAL SCALE) 1 ACHS SLIDING SCALE SQ Last administered on 08/14/17at 12:00; Start 08/10/17 at 17:00 Insulin Detemir (Levemir Inj) 75 units DAILY@0800 SQ Last administered on at 12:30; Start 08/12/17 at 08:00 Magnesium Hydroxide (Milk Of Magnesia Liq) 30 ml BID PRN PO MILD CONSTIPATION Last administered on 08/12/17at 21:04; Start 08/11/17 at 23:30 Lactated Ringer's 1,000 ml @ As Directed STK-MED ONCE IV ; Start 08/10/17 at 12 :00; Stop 08/12/17 at 07:50; Status DC Lidocaine HCl (Xylocaine-Mpf 1% Inj) 5 ml STK-MED ONCE OTHER ; Start 08/10/17 at 12:00; Stop 08/12/17 at 07:50; Status DC Rocuronium [place] (Zemuron Inj) 50 mg STK-MED ONCE IV PUSH ; Start 08/10/17 at 12:00; Stop 08/12/17 at 07:50; Status DC Neostigmine Methylsulfate (Prostigmine Inj) 5 mg STK-MED ONCE IV PUSH ; Start at 12:00; Stop 08/12/17 at 07:50; Status DC Glycopyrrolate (Robinul Inj) 1 mg STK-MED ONCE IV PUSH ; Start 08/10/17 at 12:00 ; Stop 08/12/17 at 07:50; Status DC Phenylephrine HCl (Neosynephrine/ NS 1000 Mcg/10ml Syr) 1,000 mcg STK-MED ONCE IV ; Start 08/10/17 at 12:00; Stop 08/12/17 at 07:50; Status DC Ondansetron HCl (Zofran Inj) 4 mg STK-MED ONCE IV ; Start 08/10/17 at 12:00; Stop 08/12/17 at 07:50; Status DC Propofol (Diprivan 200 Mg/20 ml Inj) 200 mg STK-MED ONCE IV ; Start 08/10/17 at 12:00; Stop 08/12/17 at 07:50; Status DC Benzocaine/Menthol (Cepacol Extra Kesha (Sugar Free)) 1 lozenge Q2HR PRN BUCCAL sore throat; Start 08/12/17 at 09:00 Senna/Docusate Sodium (Stephanie-Colace) 2 tab BID PO Last administered on at 08:22; Start 08/12/17 at 21:00 Aspirin (Aspirin Chew) 81 mg DAILY PO Last administered on 08/15/17at 08:21; Start 08/12/17 at 13:00 Lactulose (Lactulose Liq) 30 ml DAILY PO ; Start 08/13/17 at 09:00; Stop at 09:00; Status DC Lactulose (Lactulose Liq) 30 ml DAILY PRN PO MODERATE CONSTIPATION Last administered on 08/12/17at 18:56; Start 08/12/17 at 18:30 Furosemide (Lasix Inj) 20 mg ONCE ONCE IV PUSH Last administered on 08/13/17at 12:43; Start 08/13/17 at 11:30; Stop 08/13/17 at 11:48; Status DC Piperacillin Sod/ Tazobactam Sod 100 ml @ 200 mls/hr Q6H IV Last administered on 08/14/17at 17:00; Start 08/13/17 at 12:00; Stop 08/14/17 at 17:09; Status DC Vancomycin HCl 1000 mg/Sodium Chloride 250 ml @ 250 mls/hr ONCE ONCE IV ; Start 08/13/17 at 13:00; Stop 08/13/17 at 13:59; Status Cancel Pharmacy Profile Note 0 ml @ 0 mls/hr UNSCH OTHER ; Start 08/13/17 at 11:30; Stop 08/14/17 at 17:09; Status DC Vancomycin HCl 2000 mg/Sodium Chloride 520 ml @ 250 mls/hr Q18H IV Last administered on 08/14/17at 08:00; Start 08/13/17 at 14:00; Stop 08/14/17 at 17:09 ; Status DC Miscellaneous Information SPECIFIC LAB TO BE DRAWN:VANCOMYCIN TROUGH DATE TO... ONCE ONCE .XX ; Start 08/15/17 at 19:45; Stop 08/15/17 at 19:45; Status DC Methylprednisolone Sodium Succinate (SoluMEDROL INJ) 125 mg ONCE ONCE IV PUSH Last administered on 08/13/17at 20:21; Start 08/13/17 at 15:45; Stop 08/13/17 at 15:46; Status DC Alprazolam (Xanax) 0.25 mg Q6H PRN PO anxiety Last administered on 08/13/17at 21 :20; Start 08/13/17 at 15:45 Sodium Chloride 1,000 ml @ 50 mls/hr Q20H IV Last administered on 08/14/17at 14 :15; Start 08/14/17 at 14:15 Levofloxacin (Levaquin) 750 mg DAILY PO Last administered on 08/15/17at 08:22; Start 08/15/17 at 09:00 Insulin Detemir (Levemir Inj) 60 units HS SQ Last administered on 08/14/17at 21: 27; Start 08/14/17 at 21:00 Iohexol (Omnipaque 350 Inj) 75 ml STK-MED ONCE IVCONTRAST Last administered on 08/14/17at 18:14; Start 08/14/17 at 18:03; Stop 08/14/17 at 18:07; Status DC A/P Problem List: (1) Chronic diastolic congestive heart failure ICD Code: I50.32 - Chronic diastolic (congestive) heart failure (2) Primary localized osteoarthrosis, lower leg ICD Code: M17.10 - Unilateral primary osteoarthritis, unspecified knee (3) DM (diabetes mellitus) ICD Code: E11.9 - Type 2 diabetes mellitus without complications Status: Acute (4) Hypertension ICD Code: I10 - Essential (primary) hypertension Status: Acute Assessment and Plan 57-year-old female with history of insulin dependent diabetes, CKD stage III, HTN, diastolic CHF, CAD, hypothyroidism, depression, osteoarthritis, admitted to the hospital for right total knee arthroplasty. Hospitalist consultation was requested for medical management. Osteoarthritis: Status post right total knee arthroplasty. -Management per orthopedic surgery. s/p fall this am after tripping over cord. Patient bleeding from incision site and Lovenox injection site. Lovenox discontinued and transitioned to aspirin 81 mg daily -Continue pain control, bowel regimen, physical therapy. Chronic diastolic congestive heart failure, mild acute exacerbation -Continue Lasix, lisinopril, metoprolol. -Chest x-ray showing some mild pulmonary vascular congestion. Given additional dose of IV Lasix. Monitor intake and output. -BNP 61 -Monitor for improvement. Continue oxygen. -home oxygen walk test ordered Hospital-acquired pneumonia with apparent inciting dyspnea, tachycardia and hypoxia Patient requiring increase in O2 dependence, now at 4 L nasal cannula. Chest x-ray showing mild perihilar infiltrates consistent with pulmonary vascular congestion or pneumonia. Given gentle IV diuresis. Also started on IV Zosyn and Vancomycin. Discontinue, change to po Levaquin. Patient is off oxygen Wants to go home sputum culture shows heavy growth of normal respiratory senthil Lactic acid 1.2. D-dimer elevated. Obtain CTA to r/o PE. Gentle IVF given impaired kidney function and BNP 61. Insulin-dependent diabetes mellitus: Glucose has been elevated. -BS 333 this am. Increase night time Levemir to 60u and continue Levemir 75u in am. -Diabetic diet. -Monitor Accu-Cheks and cover with sliding scale insulin. Hypertension: Chronic, BP well controlled. -Continue patient's metoprolol, amlodipine, lisinopril. -Monitor BP, adjust antihypertensives as needed Chronic kidney disease stage III: chronic, stable -avoid nephrotoxins -Monitor BUN and creatinine. Hypothyroidism: chronic -Continue Synthroid. Depression: Chronic -Continue fluoxetine. Constipation: suspect secondary to opiates. -(+)BM -Continue stephanie-Colace 2 tabs po bid -Constipation protocol meds prn -Monitor for BM DVT prophylaxis: Lovenox discontinued by Ortho, changed to ASA 81mg daily We will discharge to home today has been cleared by orthopedics and [facility] Discharge Planning Discharged home today Problem Qualifiers (1) Primary localized osteoarthrosis, lower leg: Qualified Codes: M17.11 - Unilateral primary osteoarthritis, right knee Amado Kerr DO Aug 15, 2017 14:11
[2017-08-15] MEDS ORDERED: PERI PO (14:14)
[2017-08-15] MEDS ORDERED: HUMIBIDDM PO (14:14)
[2017-08-15] MEDS ORDERED: LEVA750T9 PO (14:14)
[2017-08-15] MEDS ORDERED: PHARMACY ORDERED LAB ONE (19:45)
== END 2017-08-15 16:15 | disposition home or self-care (01) | DRG 469 ==
LOC: HSDC 06:04 → HSDI 07:01 → N06A 14:16
PROVIDERS: ADMIT Orthopaedic Surgery Sports Medicine; ATTEND Orthopaedic Surgery Sports Medicine
PROC: 3E0T3BZ Introduction of Anesthetic Agent into Peripheral Nerves and Plexi, Percutaneous Approach (ICD-10-PCS; 2017-08-10)
PROC: 0SRC0J9 Replacement of Right Knee Joint with Synthetic Substitute, Cemented, Open Approach (ICD-10-PCS; principal; 2017-08-10 08:27)
DX: M17.11 Unilateral primary osteoarthritis, right knee (principal); J18.9 Pneumonia, unspecified organism; I13.0 Hypertensive heart and chronic kidney disease with heart failure and stage 1 through stage 4 chronic kidney disease, or unspecified chronic kidney disease; E11.22 Type 2 diabetes mellitus with diabetic chronic kidney disease; I50.32 Chronic diastolic (congestive) heart failure; N18.3 Chronic kidney disease, stage 3 (moderate); Z79.4 Long term (current) use of insulin; E03.9 Hypothyroidism, unspecified; F32.9 Major depressive disorder, single episode, unspecified; I25.10 Atherosclerotic heart disease of native coronary artery without angina pectoris; Z90.710 Acquired absence of both cervix and uterus; Z83.3 Family history of diabetes mellitus; Z82.49 Family history of ischemic heart disease and other diseases of the circulatory system; Z80.9 Family history of malignant neoplasm, unspecified; Z84.2 Family history of other diseases of the genitourinary system; Y95 Nosocomial condition; K59.03 Drug induced constipation; T40.605A Adverse effect of unspecified narcotics, initial encounter; Y92.239 Unspecified place in hospital as the place of occurrence of the external cause; W19.XXXA Unspecified fall, initial encounter; R09.02 Hypoxemia
CPT/HCPCS: 71045; 71275; 72110; 72170; 73560; 73564; 76937; 80048; 82948; 83605; 83880; 85025; 85027; 85379; 86850; 86900; 86901; 87070; 87205; 93971; 94150; 94618; 94664; C1776; C9290; J0690; J0735; J1100; J1580; J1650; J1815; J1885; J1940; J2175; J2250; J2270; J2370; J2405; J2543; J2710; J2795; J2930; J3010; J3370; J7030; J7040; J7050; J7120; J7613; L1830; Q9967

== ENCOUNTER 2017-08-17 01:26 | Emergency (ER) | payer OTHER, MEDICAID ==
[~2017-08-17] VITALS: Ht 170.2 cm; Wt 130.0 kg
[~2017-08-17 01:26] MED LIST changes: +ASPI81CH6 CHEW; +HUMIBIDDM PO; +HYDR-3288 PO; +LEVA750T9 PO; +PERI PO; +WALKER WHEELS/F1 MIS
[2017-08-17 01:57] VITALS: BP 165/92; PULSE 71; RESP 20; TEMP 98.6; O2SAT 96
--- NOTE | 2017-08-17 04:25 | PD ---
HPI Chief Complaint: Edema Time Seen by Provider: 04:24 Travel History International Travel<30 days: No Contact w/Intl Traveler<30days: No Traveled to known affect area: No History of Present Illness HPI 57-year-old female came to the emergency room with history of bilateral lower extremity edema. Patient says this is been going on for almost 1 week. Patient had a right knee replacement on 1 week ago. Her leg swelling started then. They had done an ultrasound before discharging her home which was negative. Patient is also complaining of shortness of breath worse when she tries to lay flat. She does have history of congestive heart failure and she is taking 40 mg of Lasix by mouth which has not changed in dose. No history of chest pain. Vital signs are relatively stable. Patient is not on any blood thinners. She does not have history of DVT or PEs in the past. PFSH Past Medical History Narrative Medical List of her past medical, surgical, social and family history reviewed from the nursing note Hx Anticoagulant Therapy: No Heart Rhythm Problems: No Cancer: No Cardiac Catheterization: Yes (3) Cardiovascular Problems: Yes High Cholesterol: No Congestive Heart Failure: Yes Cerebrovascular Accident: Yes (TIA) Diabetes: Yes (TYPE I) Patient Takes Glucophage: No Diminished Hearing: No Endocrine: Yes Gastrointestinal Disorders: Yes (REFLUX) Hepatitis: No Hypertension: Yes Neurologic: No Reproductive: No Respiratory: No Immunizations Current: No Pancreatitis: Yes Thyroid Disease: Yes Tetanus Vaccination: < 5 Years Influenza Vaccination: Yes ?: Not Menopausal: Yes : 3 Para: 2 : 1 Past Surgical History Cardiac Surgery: Yes (HEART CATH) Cholecystectomy: Yes Coronary Artery Bypass Graft: No Eye Surgery: Yes (RIGHT EYE, LEFT LASIK) Gynecologic Surgery: Yes (, HYSTERECTOMY) Hysterectomy: Yes Joint Replacement: No Other Surgery: Yes Family History Family Myocardial Infarction: Yes (SISTER) Social History Alcohol Use: No Tobacco Use: No Substance Use: No Allergies-Medications (Allergen,Severity, Reaction): Coded Allergies: pregabalin (Verified Allergy, Unknown, DIZZINESS, SLUGGISH, 08/17/17) Comments List of her allergies reviewed from the nursing note. Reported Meds & Prescriptions Reported Meds & Active Scripts Active Mucinex DM (Dextromethorphan-Guaifenesin) 30-600 Mg Tab 1 Tab PO BID PRN Gnp Senna Plus 8.6-50 mg (Sennosides-Docusate Sodium) 8.6 Mg-50 Mg Tab 2 Tab PO BID Levaquin (Levofloxacin) 750 Mg Tablet 750 Mg PO DAILY Walker with Front Wheels (Device) 1 Mis Mis Ea .XX DIRECTED Aspirin Low Dose (Aspirin) 81 Mg Chew 81 Mg CHEW BID 30 Days Lignum (Hydrocodone-Acetaminophen) 7.5-325 mg Tab 1-2 Tab PO Q6H PRN Reported Combigan Opth Drops (Brimonidine-Timolol Opth Drops) 0.2-0.5% Soln 1 Drop RIGHT EYE Q12HR Amlodipine (Amlodipine Besylate) 10 Mg Tab 10 Mg PO DAILY Levothyroxine (Levothyroxine Sodium) 25 Mcg Tab 25 Mcg PO DAILY Vitamin D3 (Cholecalciferol) 1,000 Unit Tab 1,000 Units PO DAILY Furosemide 40 Mg Tab 80 Mg PO DAILY Lisinopril 10 Mg Tab 10 Mg PO DAILY Metoprolol Succinate ER 24 HR (Metoprolol Succinate) 25 Mg Tab 25 Mg PO DAILY Fluoxetine (Fluoxetine HCl) 40 Mg Cap 20 Cap PO BID Protonix (Pantoprazole Sodium) 40 Mg Tab 40 Mg PO DAILY Gabapentin 300 Mg Cap 300 Mg PO HS Lantus Inj (Insulin Glargine) 1,000 Unit/10 Ml Vial 55 Units SQ HS Lantus Inj (Insulin Glargine) 1,000 Unit/10 Ml Vial 75 Units SQ AC BREAKFAST Narrative Medication List of her home medications reviewed from the nursing note. Review of Systems Except as stated in HPI: all other systems reviewed are Neg Respiratory: Positive: Shortness of Breath Musculoskeletal: Positive: Edema Physical Exam Narrative GENERAL: Awake, alert, morbidly obese, no obvious SKIN: Focused skin assessment warm/dry. HEAD: Atraumatic. Normocephalic. EYES: Pupils equal and round. No scleral icterus. No injection or drainage. ENT: No nasal bleeding or discharge. Mucous membranes pink and moist. NECK: Trachea midline. No JVD. CARDIOVASCULAR: Regular rate and rhythm. No murmur appreciated. RESPIRATORY: No accessory muscle use. Clear to auscultation. Breath sounds equal bilaterally. GASTROINTESTINAL: Abdomen soft, non-tender, nondistended. Hepatic and splenic margins not palpable. MUSCULOSKELETAL: No obvious deformities. No clubbing. No cyanosis. Bilateral 3 + pitting edema. NEUROLOGICAL: Awake and alert. No obvious cranial nerve deficits. Motor grossly within normal limits. Normal speech. PSYCHIATRIC: Appropriate mood and affect; insight and judgment normal. Data Data Last Documented VS Orders Orders Complete Blood Count With Diff (08/17/17 04:25) Basic Metabolic Panel (Bmp) (08/17/17 04:25) Prothrombin Time / Inr (Pt) (08/17/17 04:25) B-Type Natriuretic Peptide (08/17/17 04:25) Electrocardiogram (08/17/17 ) Troponin I (08/17/17 04:25) Us Leg Venous Doppler Bilat (08/17/17 ) Chest, Single Ap (08/17/17 ) Potassium Chloride (Kcl) (08/17/17 05:45) Ed Discharge Order (08/17/17 07:03) Acetamin-Hydrocod 325-5 Mg (Lignum 5-325 (08/17/17 07:15) Labs Laboratory Tests Test 08/17/17 04:37 White Blood Count 8.6 TH/MM3 Red Blood Count 3.86 MIL/MM3 Hemoglobin 11.5 GM/DL Hematocrit 34.4 % Mean Corpuscular Volume 89.0 FL Mean Corpuscular Hemoglobin 29.8 PG Mean Corpuscular Hemoglobin Concent 33.4 % Red Cell Distribution Width 14.6 % Platelet Count 334 TH/MM3 Mean Platelet Volume 8.4 FL Neutrophils (%) (Auto) 62.3 % Lymphocytes (%) (Auto) 26.1 % Monocytes (%) (Auto) 7.5 % Eosinophils (%) (Auto) 3.9 % Basophils (%) (Auto) 0.2 % Neutrophils # (Auto) 5.4 TH/MM3 Lymphocytes # (Auto) 2.2 TH/MM3 Monocytes # (Auto) 0.6 TH/MM3 Eosinophils # (Auto) 0.3 TH/MM3 Basophils # (Auto) 0.0 TH/MM3 CBC Comment DIFF FINAL Differential Comment Prothrombin Time 10.3 SEC Prothromb Time International Ratio 1.0 RATIO Blood Urea Nitrogen 12 MG/DL Creatinine 1.09 MG/DL Random Glucose 175 MG/DL Calcium Level 9.3 MG/DL Sodium Level 137 MEQ/L Potassium Level 3.4 MEQ/L Chloride Level 96 MEQ/L Carbon Dioxide Level 35.2 MEQ/L Anion Gap 6 MEQ/L Estimat Glomerular Filtration Rate 62 ML/MIN Troponin I LESS THAN 0.02 NG/ML B-Type Natriuretic Peptide 6 PG/ML MDM Medical Decision Making Medical Screen Exam Complete: Yes Emergency Medical Condition: Yes Medical Record Reviewed: Yes Interpretation(s) Twelve-lead EKG was reviewed by me. Normal sinus rhythm, left axis deviation, nonspecific ST-T wave changes, poor R-wave progression. Heart rate of 69 bpm. Differential Diagnosis CHF, DVT, dependent Narrative Course 5:52 AM blood test results are back and it is within normal limit including the BNP and troponin. Chest x-ray is negative. Awaiting for an ultrasound of her legs to be done and resulted. Potassium was slightly low probably from constant diuresis. I have ordered p.o. potassium replacement. 6:32 AM ultrasound is still pending to be resulted. Case most probably will be signed over to the oncoming ER physician. 7:04 AM ultrasound is negative for DVT. I will discharge her home. Procedures EKG Prior to Arrival: No Diagnosis Primary Impression: Dependent edema Referrals: Primary Care Physician 2 days Additional Instructions: Keep the legs elevated to keep the swelling down. Follow-up with your primary care. Med/Other Pt SpecificInfo: No Change to Meds Disposition: 01 DISCHARGE HOME Condition: Stable Shahriar Tim MD Aug 17, 2017 04:25
[2017-08-17 04:55] LABS: PROTHROMBIN TIME - PATIENT 10.3 SEC (9.8-11.6)
--- NOTE | 2017-08-17 05:01 | RADRPT ---
EXAM DATE/TIME: 08/17/2017 04:39 [facility] COMPARISON: CHEST SINGLE AP, August 13, 2017, 10:02. INDICATIONS : Short of breath, wheezing, leg swelling. MEDICAL HISTORY : Chronic obstructive pulmonary disease. SURGICAL HISTORY : None. ENCOUNTER: Initial ACUITY: 1 day PAIN SCORE: 0/10 LOCATION: Bilateral chest FINDINGS: A single view of the chest demonstrates the lungs to be symmetrically aerated without evidence of mas s, infiltrate or effusion. The cardiomediastinal contours are unremarkable. Osseous structures are intact. CONCLUSION: The lungs are clear. Berto Taveras MD on August 17, 2017 at 5:00 Board Certified Radiologist. This report was verified electronically.
[2017-08-17 05:18] LABS: AUTOMATED NEUTROPHIL # 5.4 TH/MM3 (1.8-7.7); BASOPHIL % 0.2 % (0.0-2.0); EOSINOPHIL # 0.3 TH/MM3 (0-0.4); EOSINOPHIL % 3.9 % (0.0-4.0); HEMATOCRIT 34.4 % (35.0-46.0); HEMOGLOBIN 11.5 GM/DL (11.6-15.3); LYMPH % 26.1 % (9.0-44.0); LYMPHOCYTE # 2.2 TH/MM3 (1.0-4.8); MEAN CORPUSCULAR HEMOGLOBIN 29.8 PG (27.0-34.0); MEAN CORPUSCULAR HGB CONC 33.4 % (32.0-36.0); MEAN PLATELET VOLUME 8.4 FL (7.0-11.0); MONO % 7.5 % (0.0-8.0); MONOCYTE # 0.6 TH/MM3 (0-0.9); NEUT % 62.3 % (16.0-70.0); PLATELET COUNT 334 TH/MM3 (150-450); RED BLOOD COUNT 3.86 MIL/MM3 (4.00-5.30); RED CELL DISTRIBUTION WIDTH 14.6 % (11.6-17.2); WHITE BLOOD COUNT 8.6 TH/MM3 (4.0-11.0)
[2017-08-17 05:24] LABS: TROPONIN I LESS THAN 0.02 NG/ML (0.02-0.05)
[2017-08-17 05:34] LABS: BICARBONATE 35.2 MEQ/L (21.0-32.0); BLOOD UREA NITROGEN 12 MG/DL (7-18); CALCIUM 9.3 MG/DL (8.5-10.1); CHLORIDE 96 MEQ/L (98-107); CREATININE 1.09 MG/DL (0.50-1.00); GLOMERULAR FILTRATION RATE 62 ML/MIN (>89); GLUCOSE,RANDOM 175 MG/DL (74-106); SODIUM (NA) 137 MEQ/L (136-145)
[2017-08-17] MEDS ORDERED: POTASSIUM CHLORIDE 20 MEQ CONTROLLED RELEASE TAB PO ONE (05:45)
--- NOTE | 2017-08-17 06:59 | RADRPT ---
EXAM DATE/TIME: 08/17/2017 05:58 [facility] COMPARISON: No previous studies available for comparison. INDICATIONS : Bilateral leg swelling. MEDICAL HISTORY : Myocardial infarction. Congestive heart failure. Pancreatitis. Thyroid disease. TIA. Syncope. HTN. Ar thritis. Type I Diabetes. DVT. Anticoagulant therapy, Aspirin 81mg. SURGICAL HISTORY : Cholecystectomy. section. Hysterectomy.Right eye surgery. Left eye lasik. Cardiac cath. Right knee replacement. ENCOUNTER: Subsequent ACUITY: 3 days PAIN SCORE: 10/10 LOCATION: Bilateral leg. TECHNIQUE: Venous ultrasound of the left and right leg was performed from the inguinal ligament to the proximal calf. Real-time, color Doppler and spectral tracing, compression and augmentation techniques were us ed. FINDINGS: RIGHT LEG: There is normal compressibility of the deep venous system from the inguinal region to the proximal ca lf. No echogenic clot is seen in the lumen of the common femoral, femoral, popliteal, and posterior tibial veins. There is a normal response of the venous system to proximal and distal augmentation an d respiration. LEFT LEG: There is normal compressibility of the deep venous system from the inguinal region to the proximal ca lf. No echogenic clot is seen in the lumen of the common femoral, femoral, popliteal, and posterior tibial veins. There is a normal response of the venous system to proximal and distal augmentation an d respiration. Popliteal cyst measuring 3.2 x 5.6 cm. CONCLUSION: Negative for deep venous thrombosis bilateral lower extremities. Berto Taveras MD on August 17, 2017 at 6:56 Board Certified Radiologist. This report was verified electronically.
[2017-08-17] MEDS ORDERED: ACETAMINOPHEN/HYDROcodone 325 MG/5 MG TAB PO ONE (07:15)
--- NOTE | 2017-08-17 11:53 | EKG ---
Date Performed: 08/17/2017 Time Performed: 05:05:13 PTAGE: 57 years EKG: Sinus rhythm BORDERLINE LEFT AXIS DEVIATION MINIMAL VOLTAGE CRITERIA FOR LVH, CONSIDER NORMAL VARIANT NONSPECIFIC T-WAVE ABNORMALITY BORDERLINE ECG PREVIOUS TRACING : 01/24/2017 08.03 Since the previous tracing, no significant change noted DOCTOR: Jeannette Gomez Interpretating Date/Time 08/17/2017 11:51:37
== END 2017-08-17 07:44 | disposition home or self-care (01) ==
LOC: NEPC 01:26
DX: R60.0 Localized edema (principal); I11.0 Hypertensive heart disease with heart failure; I50.9 Heart failure, unspecified; K21.9 Gastro-esophageal reflux disease without esophagitis; E07.9 Disorder of thyroid, unspecified; E10.9 Type 1 diabetes mellitus without complications; Z86.73 Personal history of transient ischemic attack (TIA), and cerebral infarction without residual deficits; R94.31 Abnormal electrocardiogram [ECG] [EKG]; Z96.651 Presence of right artificial knee joint
CPT/HCPCS: 71045; 80048; 83880; 84484; 85025; 85610; 93005; 93970